=== PATIENT | male | born 1960 | race African-American/Black ===

== ENCOUNTER 2016-04-05 15:23 | Inpatient (IN) ==
[2016-04-05] MEDS ORDERED: 0.9 % Sodium Chloride 1,000 ML IV ONE (15:58)
--- NOTE | 2016-04-05 16:50 | Emergency Department Note ---
Disposition Clinical Impression: Pneumonia Disposition: Admitted As Inpatient Condition: Fair General Adult HPI - General Chief complaint: ED Fever Stated complaint: Fever, lung cancer patient Time Seen by Provider: 04/05/16 15:46 Source: patient Limitations: no limitations Nursing Notes Reviewed: Yes Vital Signs Reviewed: Yes - History of Present Illness HPI Narrative: Patient here for evaluation of cough congestion and fever. Patient is a lung cancer patient that is undergoing chemotherapy. Patient's chemotherapy was scheduled for the of to the secondary to cough and congestion that was treated with outpatient antibiotics. Patient received treatment on the and has been having increasing amount of cough and dyspnea and yellow sputum. Patient feels congestion in chest pain that is located in the left anterior chest region. Temperature was taken at outpatient facility and told that he was febrile. Currently afebrile. Patient is cachectic looking with skin that is warm to the touch. No significant focal finding on pulmonary exam. Patient is significantly tachycardic. Will investigate for possible pneumonia. Workup is negative patient will receive a CTA to evaluate for possible PE. Pain Scale: 9 - Related Data Home Medications Medication Instructions Recorded Confirmed Hydrochlorothiazide [Microzide] 25 mg PO DAILY 09/18/14 04/05/16 Tiotropium [Spiriva] 18 mcg IH DAILY 04/07/15 04/05/16 Albuterol Sulfate [Ventolin Hfa] 2 puff IH Q4H PRN 10/07/15 04/05/16 Budesonide/Formoterol 160/4.5 2 puff IH BIDR 10/07/15 04/05/16 [Symbicort 160/4.5] Montelukast [Singulair] 10 mg PO DAILY 11/15/15 04/05/16 Ipratropium/Albuterol Neb [Duoneb] 3 ml IH QID PRN 04/05/16 04/05/16 Lactose-Reduced Food [Ensure 1 bottle PO TID 04/05/16 04/05/16 Liquid] Previous Rx's Medication Instructions Recorded Aspirin 81 mg PO DAILY #90 tab.chew 12/09/14 Omeprazole [PriLOSEC] 40 mg PO DAILY #30 capsule 04/07/15 Calcium Carb, Citrate/Vit D3 1 each PO DAILY #30 tablet.er 11/19/15 [Calcium + D3 ER Tablet] Docusate Sodium [Colace] 100 mg PO BID PRN #60 02/10/16 Dexamethasone [Decadron] 4 mg PO BID #40 tab 03/16/16 Ondansetron [Zofran] 4 mg PO Q8HR PRN #90 tablet 03/16/16 Prochlorperazine Maleate 10 mg PO Q8HR PRN #90 tablet 03/16/16 [Compazine] Lidocaine/Prilocaine CREAM [Emla] 1 gm TP AD #1 tube 03/20/16 Magic Mouthwash 5 ml PO Q4H PRN #240 ml 03/20/16 OxyCODONE Immed Rel [Roxicodone 5 5 mg PO Q6HR PRN #90 tablet 03/30/16 MG] Allergies Allergy/AdvReac Type Severity Reaction Status Date / Time No Known Allergies Allergy Verified 04/05/16 15:28 All systems ED: reviewed and negative except as stated. Constitutional: Reports: fever, chills, weakness Cardiovascular: Reports: chest pain, dyspnea on exertion Respiratory: Reports: cough, dyspnea Past Medical History - Past Medical History Medical history: Reports: cancer, COPD, GERD, hypertension, other Surgical history: Reports: other Psychiatric history: Reports: no psych history - Social History Smoking Status: Current every day smoker Smokeless Tobacco Status: No Alcohol use: Reports: occasionally Drug use: Reports: marijuana Physical Exam - General Limitations: no limitations General appearance: alert, in no apparent distress - Head Head exam: atraumatic, normocephalic - Eye Eye exam: Present: normal appearance - ENT ENT exam: normal exam, normal oropharynx - Neck Neck exam: Present: normal inspection, full ROM - Chest Chest inspection: Present: normal inspection, symmetric chest wall rise. Absent : tenderness - Respiratory Respiratory exam: Present: normal lung sounds bilaterally. Absent: respiratory distress, wheezes - Cardiovascular Cardiovascular exam: Present: regular rate, normal rhythm - Abdominal Exam Abdominal exam: Present: soft, Non-Tender - Extremities Exam Extremities exam: Present: normal inspection. Absent: tenderness - Back Exam Back exam: Present: normal inspection. Absent: tenderness - Neurological Exam Neurological exam: Present: alert, oriented X3, CN II-XII intact - Psychiatric Psychiatric exam: Present: normal affect, normal mood - Skin Skin exam: Present: warm, dry Course - Reevaluation(s) Reevaluation #1: CTA negative for PE. Multifocal pneumonia. Antibiotics given. - Consultations Consultation #1: Discussed with hospitalist. Patient accepted. Request CTA to rule out PE. Vital Signs Temperature 97.8 F 04/05/16 15:25 Pulse Rate 129 04/05/16 15:25 Respiratory Rate 20 04/05/16 15:25 Blood Pressure 127/81 04/05/16 15:25 O2 Sat by Pulse Oximetry 93 L 04/05/16 15:25 Temperature 97.8 F 04/05/16 15:25 Pulse Rate 102 04/05/16 20:04 Respiratory Rate 16 04/05/16 20:59 Blood Pressure 136/89 04/05/16 20:59 O2 Sat by Pulse Oximetry 95 04/05/16 20:04 Oxygen Delivery Oxygen Delivery Room Air Medical Decision Making - Medical Records Medical records reviewed: Yes I reviewed the patient's medical records. - Lab Data Lab results reviewed: Yes I reviewed the patient's lab results. Result diagrams: 04/05/16 17:09 04/05/16 17:09 Lab Results 04/05/16 04/05/16 04/05/16 Range/Units 17:09 17:09 17:09 WBC 11.2 H (4.3-11.1) K/mcL RBC 4.07 L (4.19-5.50) M/mcL Hgb 10.4 L (12.9-16.9) g/dL Hct 32.9 L (37.5-50.1) % MCV 80.8 L (83.0-100.0) fL MCH 25.6 L (28.0-33.3) pg MCHC 31.6 (31.6-35.5) g/dL RDW 14.6 H (11.5-14.5) % Plt Count 722 H (140-400) K/mcL MPV 9.9 (9.4-12.4) fL Immature Gran % 0.7 (0-4) % Seg Neutrophils % 88.3 % Lymphocytes % 4.0 % Monocytes % 6.7 % Eosinophils % 0.0 % Basophils % 0.3 % Neutrophils # 9.9 H (1.6-8.9) K/mcL Lymphocytes # 0.5 L (0.6-4.6) K/mcL Monocytes # 0.8 (0.0-1.3) K/mcL Eosinophils # 0.0 (0.0-0.6) K/mcL Basophils # 0.0 (0.0-0.2) K/mcL PT 13.7 H (9.4-12.1) Seconds INR 1.3 Sodium 131 L (136-145) mEq/L Potassium 3.7 (3.5-4.5) mEq/L Chloride 94 L (98-109) mEq/L Carbon Dioxide 26 (19-29) mEq/L BUN 32 H (8-26) mg/dL Creatinine 0.84 (0.72-1.25) mg/dL Est GFR ( Amer) > 60 (> 60) Est GFR (Non-Af Amer) > 60 (> 60) BUN/Creatinine Ratio 38 H (6-26) Glucose 111 H (70-99) mg/dL Calculated Osmolality 280 (280-300) Lactic Acid (0.5-2.2) mmol/L Calcium 9.0 (8.6-10.8) mg/dL Phosphorus 2.8 (2.3-4.7) mg/dL Magnesium 1.7 (1.6-2.6) mg/dL Total Bilirubin 1.1 (0.2-1.2) mg/dL Direct Bilirubin 0.5 (0.0-0.5) mg/dL Indirect Bilirubin 0.6 (0.0-1.2) mg/dL AST 37 H (5-34) Units/L ALT 35 (0-55) Units/L Alkaline Phosphatase 114 (38-126) Units/L Troponin I (0-0.03) ng/mL Serum Total Protein 7.1 (6.0-8.3) g/dL Albumin 2.7 L (3.5-5.0) g/dL Globulin 4.4 H (2.4-3.5) g/dL Albumin/Globulin Ratio 0.6 L (1.1-2.2) Urine Color (Yellow) Urine Clarity (Clear) Urine pH (5.0-8.0) pH Units Ur Specific [place] (1.010-1.025) Urine Protein (Neg-Trace) mg/dL Urine Glucose (UA) (Normal) mg/dL Urine Ketones (Negative) mg/dL Urine Blood (Negative) Urine Nitrite (Negative) Urine Bilirubin (Negative) Urine Urobilinogen (Normal) mg/dL Ur Leukocyte Esterase (Negative) Urine Microscopic RBC Urine Microscopic WBC (0-3) per hpf Ur Squamous Epith Cells (None-Few) per lpf Urine Bacteria (None-Few) per hpf Hyaline Casts (None-Few) per lpf Ur Culture Indicated? (NO) 04/05/16 04/05/16 04/05/16 Range/Units 17:09 17:09 18:49 WBC (4.3-11.1) K/mcL RBC (4.19-5.50) M/mcL Hgb (12.9-16.9) g/dL Hct (37.5-50.1) % MCV (83.0-100.0) fL MCH (28.0-33.3) pg MCHC (31.6-35.5) g/dL RDW (11.5-14.5) % Plt Count (140-400) K/mcL MPV (9.4-12.4) fL Immature Gran % (0-4) % Seg Neutrophils % % Lymphocytes % % Monocytes % % Eosinophils % % Basophils % % Neutrophils # (1.6-8.9) K/mcL Lymphocytes # (0.6-4.6) K/mcL Monocytes # (0.0-1.3) K/mcL Eosinophils # (0.0-0.6) K/mcL Basophils # (0.0-0.2) K/mcL PT (9.4-12.1) Seconds INR Sodium (136-145) mEq/L Potassium (3.5-4.5) mEq/L Chloride (98-109) mEq/L Carbon Dioxide (19-29) mEq/L BUN (8-26) mg/dL Creatinine (0.72-1.25) mg/dL Est GFR ( Amer) (> 60) Est GFR (Non-Af Amer) (> 60) BUN/Creatinine Ratio (6-26) Glucose (70-99) mg/dL Calculated Osmolality (280-300) Lactic Acid 0.8 (0.5-2.2) mmol/L Calcium (8.6-10.8) mg/dL Phosphorus (2.3-4.7) mg/dL Magnesium (1.6-2.6) mg/dL Total Bilirubin (0.2-1.2) mg/dL Direct Bilirubin (0.0-0.5) mg/dL Indirect Bilirubin (0.0-1.2) mg/dL AST (5-34) Units/L ALT (0-55) Units/L Alkaline Phosphatase (38-126) Units/L Troponin I 0.00 (0-0.03) ng/mL Serum Total Protein (6.0-8.3) g/dL Albumin (3.5-5.0) g/dL Globulin (2.4-3.5) g/dL Albumin/Globulin Ratio (1.1-2.2) Urine Color Dark Yellow (Yellow) Urine Clarity Cloudy A (Clear) Urine pH 6.5 (5.0-8.0) pH Units Ur Specific [place] 1.026 H (1.010-1.025) Urine Protein 30 H (Neg-Trace) mg/dL Urine Glucose (UA) Normal (Normal) mg/dL Urine Ketones Negative (Negative) mg/dL Urine Blood Negative (Negative) Urine Nitrite Negative (Negative) Urine Bilirubin Small H (Negative) Urine Urobilinogen Normal (Normal) mg/dL Ur Leukocyte Esterase Negative (Negative) Urine Microscopic RBC Test Not Performed Urine Microscopic WBC 3-5 H (0-3) per hpf Ur Squamous Epith Cells Many H (None-Few) per lpf Urine Bacteria None Seen (None-Few) per hpf Hyaline Casts None Seen (None-Few) per lpf Ur Culture Indicated? NO (NO) - Radiology Data Radiology results reviewed: Yes I reviewed the patient's radiology results. - EKG Data EKG #1 EKG attestation: Yes I reviewed and interpreted this EKG. EKG results narrative: EKG shows sinus tachycardia at a rate of 111. SC interval 132. QRS 74. QTC 361. No significant ST elevation or depression. No specific T-wave changes when compared to previous EKG of 02/26/16 Attestation Statement - Attestation Attestation: For this encounter, I have reviewed the resident, OLAP DEVELOPER, or PA documentation, treatment plan, and medical decision making; and I have had face to face time with this patient. 56-year-old male presents with concerns of increased dyspnea, cough, fever. Patient is currently being treated for lung cancer with chemotherapy. His most recent dose 4 days ago was delayed due to possible pneumonia. Patient took a Z- Reese, felt improved and then received his chemotherapy. Since the dosing of chemotherapy he has become progressively more weak and fatigued. Patient states he had a fever at home. He called his oncologist who recommended he be evaluated in the emergency department for possible pneumonia. Patient has a likely pneumonia with chest x-ray. Patient will be admitted to the hospitalist. He was started on vancomycin and Zosyn and azithromycin in the emergency department. Hospitalist requested CTA of the chest before going upstairs which shows infiltrate but not presence of PE.
[2016-04-05 17:17] LABS: Basophils % 0.3 %; Hematocrit 32.9 % (37.5-50.1); Hemoglobin 10.4 g/dL (12.9-16.9); Immature Granulocytes % 0.7 % (0-4); Lymphocytes # 0.5 K/mcL (0.6-4.6); Mean Corpuscular HGB Conc 31.6 g/dL (31.6-35.5); Mean Corpuscular Hemoglobin 25.6 pg (28.0-33.3); Mean Corpuscular Volume 80.8 fL (83.0-100.0); Mean Platelet Volume 9.9 fL (9.4-12.4); Monocytes # 0.8 K/mcL (0.0-1.3); Monocytes % 6.7 %; Neutrophils # 9.9 K/mcL (1.6-8.9); Platelet Count 722 K/mcL (140-400); Red Blood Count 4.07 M/mcL (4.19-5.50); Red Cell Distribution Width 14.6 % (11.5-14.5); Segmented Neutrophils % 88.3 %
[2016-04-05 17:24] LABS: INR 1.3; Prothrombin Time 13.7 Seconds (9.4-12.1)
[2016-04-05 17:30] LABS: Alanine Aminotransferase 35 Units/L (0-55); Albumin 2.7 g/dL (3.5-5.0); Albumin/Globulin Ratio 0.6 (1.1-2.2); Alkaline Phosphatase 114 Units/L (38-126); Aspartate Amino Transferase 37 Units/L (5-34); BUN/Creatinine Ratio 38 (6-26); Bilirubin,Direct 0.5 mg/dL (0.0-0.5); Bilirubin,Indirect 0.6 mg/dL (0.0-1.2); Bilirubin,Total 1.1 mg/dL (0.2-1.2); Blood Urea Nitrogen 32 mg/dL (8-26); Carbon Dioxide 26 mEq/L (19-29); Chloride 94 mEq/L (98-109); Globulin 4.4 g/dL (2.4-3.5); Glucose 111 mg/dL (70-99); Magnesium 1.7 mg/dL (1.6-2.6); Osmolality,Calculated 280 (280-300); Phosphorous 2.8 mg/dL (2.3-4.7); Potassium 3.7 mEq/L (3.5-4.5); Sodium 131 mEq/L (136-145); Total Protein 7.1 g/dL (6.0-8.3); eGFR For African Americans > 60 (> 60); eGFR For Non-African Americans > 60 (> 60)
[2016-04-05] MEDS ORDERED: Vancomycin 1,000 MG in D5% in Water 250 ML IVPB STA (17:53)
[2016-04-05] MEDS ORDERED: Piperacillin/Tazobactam 3.375 GM in D5% in Water (Mini-Bag+) 100 ML IVPB ONE (17:55)
[2016-04-05] MEDS ORDERED: Azithromycin 500 MG in D5% in Water 250 ML IVPB STA (18:00)
[2016-04-05 18:56] LABS: Bilirubin,Urine Small (Negative); Blood,Urine Negative (Negative); Clarity,Urine Cloudy (Clear); Color,Urine Dark Yellow (Yellow); Glucose,Urine (UA) Normal (Normal); Ketones,Urine Negative (Negative); Leukocyte Esterase,Urine Negative (Negative); Nitrite,Urine Negative (Negative); PH,Urine 6.5 pH Units (5.0-8.0); Protein,Urine 30 mg/dL (Neg-Trace); Specific Gravity,Urine 1.026 (1.010-1.025); Urobilinogen,Urine Normal (Normal)
[2016-04-05 19:02] LABS: Bacteria,Urine None Seen per hpf (None-Few); Hyaline Casts,Urine None Seen per lpf (None-Few); Squamous Epithelial Cell,Urine Many per lpf (None-Few)
[2016-04-05] MEDS ORDERED: *HR* OxyCODONE/APAP 5/325 TABLET PO ONE (20:00)
--- NOTE | 2016-04-05 20:23 | Internal Med History&Physical ---
<JonasGarret - Last Filed: 04/05/16 21:29> Date of Encounter: 04/05/16 Time of Encounter: 20:19 Assessment and Plan (1) Acute and chronic respiratory failure Current visit: Yes Status: Acute Patient does have 2L oxygen as needed at home and has required constant supplemental oxygen and presented mildly hypoxemia upon arrival Will continue on supplemental oxygen and support with scheduled breathing treatments and as needed nebulizers Significant wheezing heard upon examination, so will start on low dose solumedrol If he does not respond to current regimen, may consider pulmonology consult for further management with possible bronchoscopy to evaluate for post-obstructive process Preliminary CTA report negative for PE Qualifiers: Qualified Code(s): J96.20 - Acute and chronic respiratory failure, unspecified whether with hypoxia or hypercapnia (2) HCAP (healthcare-associated pneumonia) Current visit: Yes Status: Acute Patient has left lower consolidation seen 2 weeks prior and presumably failed outpatient therapy with one dose of IV levaquin and Z-reese He is immunocompromised on chemotherapy and thus meets criteria for health care associated illness Will start on broad spectrum antibiotics with Vanc, Zosyn, and Levaquin Blood cultures obtained, will also get sputum culture and wait for sensitivities prior to de-escalation Although he did present with tachycardia and borderline tachypnea I do not feel patient appears septic; he did receive fluid bolus in the ED (3) Acute exacerbation of chronic obstructive airways disease Current visit: Yes Status: Acute Plan as above with supplemental oxygen, steroids, and breathing treatments (4) Metastatic lung carcinoma Current visit: No Status: Chronic He has received his first round of chemotherapy last week and is being managed by Dr. Mathur as outpatient Will consult Oncology, appreciate recommendations Qualifiers: Laterality: right Qualified Code(s): C78.01 - Secondary malignant neoplasm of right lung (5) Hypertension Current visit: Yes Status: Chronic Blood pressure within normal limits upon admission Will continue home dose of HCTZ Qualifiers: Qualified Code(s): I10 - Essential (primary) hypertension (6) Essential thrombocytosis Current visit: No Status: Chronic He has known JAK2 kinase mutation and was previously on Hydrea prior to starting chemotherapy Patient denies any history of blood clots, will defer to oncology for any further management (7) DVT prophylaxis Current visit: Yes Status: Acute Lovenox SQ 40 daily Internal Medicine - H&P: HPI Chief complaint: Shortness of breath Admitted From: Home Plans for Post Hospital Care: Home History of present illness: Mr. Sheridan is a 56 year old male who presents to the emergency department with shortness of breath associated with cough and fever since Sunday. He states that he felt short of breath even at rest which started over the weekend and associated with a productive cough of yellow sputum. He also has been having a fever, highest recorded temperature was 100.8. He also complains of chest discomfort in the left side of his chest and also has pain with cough. Patient did see the oncologist 2 weeks ago who found a left lower lobe pneumonia and was give a shot of Levaquin and then a Z-Reese. He was recently confirmed to have lung cancer last month and started chemotherapy last week, which was delayed while he was being treated for pneumonia. He felt fine the first couple days after the infusion, but expresses nausea and vomiting afterwards. He denies any blood in his vomit or sputum. He had a PET scan done 2 months prior which revealed uptake in the lung mass along with adrenal and left iliac region. 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 He also has a history of essential thrombocythemia and was previously on hydroxyurea but was stopped when he started chemotherapy recently. Patient currently denies any chest pain, fever, nausea does admit to poor appetite. Past Med Surg Social Fam HX - Past Medical History Medical history: cancer, COPD, GERD, hypertension, other Psychiatric history: no psych history - Past Surgical History Surgical History: other - Social History Smoking Status: Current every day smoker Smokeless Tobacco Status: No Alcohol use: occasionally Drug use: marijuana Internal Medicine - H&P: Meds Hydrochlorothiazide [Microzide] 25 mg PO DAILY 09/18/14 [History] Aspirin 81 mg PO DAILY #90 tab.chew 12/09/14 [Rx] Omeprazole [PriLOSEC] 40 mg PO DAILY #30 capsule 04/07/15 [Rx] Tiotropium [Spiriva] 18 mcg IH DAILY 04/07/15 [History] Albuterol Sulfate [Ventolin Hfa] 2 puff IH Q4H PRN 10/07/15 [History] Budesonide/Formoterol 160/4.5 [Symbicort 160/4.5] 2 puff IH BIDR 10/07/15 [ History] Montelukast [Singulair] 10 mg PO DAILY 11/15/15 [History] Calcium Carb, Citrate/Vit D3 [Calcium + D3 ER Tablet] 1 each PO DAILY #30 tablet.er 11/19/15 [Rx] Docusate Sodium [Colace] 100 mg PO BID PRN #60 02/10/16 [Rx] Dexamethasone [Decadron] 4 mg PO BID #40 tab 03/16/16 [Rx] Ondansetron [Zofran] 4 mg PO Q8HR PRN #90 tablet 03/16/16 [Rx] Prochlorperazine Maleate [Compazine] 10 mg PO Q8HR PRN #90 tablet 03/16/16 [Rx] Lidocaine/Prilocaine CREAM [Emla] 1 gm TP AD #1 tube 03/20/16 [Rx] Magic Mouthwash 5 ml PO Q4H PRN #240 ml 03/20/16 [Rx] OxyCODONE Immed Rel [Roxicodone 5 MG] 5 mg PO Q6HR PRN #90 tablet 03/30/16 [Rx] Ipratropium/Albuterol Neb [Duoneb] 3 ml IH QID PRN 04/05/16 [History] Lactose-Reduced Food [Ensure Liquid] 1 bottle PO TID 04/05/16 [History] Allergies No Known Allergies Allergy (Verified 04/05/16 15:28) All Systems PM: A 10-system review of systems was performed and is negative for pertinent findings except as documented above in the HPI. - Constitutional Constitutional: anorexia, chills, fever(s), weakness, no night sweats - EENT Eyes: no change in vision, no discharge, no pain, no photophobia Ears: no ear discharge, no ear pain, no tinnitus Nose, mouth and throat: no dysphagia, no nasal discharge, no neck pain, no sore throat - Cardiovascular Cardiovascular ROS IM: chest pain, dyspnea, dyspnea on exertion, no diaphoresis , no lightheadedness, no palpitations, no syncope - Respiratory Respiratory: cough, dyspnea, wheezing, change in phlegm color, pain with cough, no excessive phlegm production - Gastrointestinal Gastrointestinal: nausea, vomiting, no abdominal pain, no diarrhea, no hematemesis, no hematochezia, no melena - Musculoskeletal Musculoskeletal ROS IM: no numbness, no tingling - Integumentary Integumentary IM: no rash, no unusual bruising - Neurological Neurological ROS: no confusion, no convulsions, no focal weakness, no frequent falls, no headache(s), no numbness, no tingling, no tremor(s) - Hematologic/Lymphatic Hematologic/Lymphatic: no easy bruising - Constitutional Vitals: Temp Pulse Resp BP Pulse Ox 97.8 F 102 16 138/98 95 04/05/16 15:25 04/05/16 20:04 04/05/16 20:04 04/05/16 20:04 04/05/16 20:04 General appearance: Present: cachectic, cooperative, pleasant, no acute distress , answers questions appropriately - Head Head exam: Present: atraumatic, normocephalic - Eye Eye exam: Present: PERRL, conjuntiva pink, sclera anicteric - Neck Neck exam general surgery: Present: supple, trachea midline. Absent: lymphadenopathy - Respiratory Respiratory exam: Present: CTAB. Absent: accessory muscle use, rales, rhonchi, wheezes - Cardiovascular Cardiovascular exam: Present: RRR, +S1, +S2. Absent: diastolic murmur, gallop, rubs, systolic murmur - GI/Abdominal GI/Abdominal exam: Present: normal bowel sounds, soft, no peritoneal signs. Absent: distended, tenderness - Extremities Exam Extremities exam: Present: warm, radial pulses palpable and symetrical. Absent : calf tenderness, cyanotic, pedal edema - Neurological Exam Neurological exam: Present: alert, no focal deficits. Absent: facial droop, speech deficit - Skin Skin exam: Present: dry, intact Internal Med - H&P Results - Labs CBC & Chem 7: 04/05/16 17:09 04/05/16 17:09 <Bonilla Montalvo - Last Filed: 04/06/16 05:06> Date of Encounter: 04/05/16 Internal Medicine - H&P: HPI History of present illness: Mr. Sheridan is a 56 year old male with two-day [facility] via the emergency department when he presented with chief complaint of fever and difficulty breathing in the setting of metastatic lung cancer. The patient was visited and interviewed and examined. I examined this patient and my medical decision-making was reviewed with the Resident Physician. For this encounter, I have reviewed the documentation, treatment plan, and medical decision making. I agree with the documented findings, disposition and treatment plan as described except to the extent set forth below. Cumulative laboratory and radiographic database was reviewed and considered and discussed. Given the patient's presenting concerns, past medical history, clinical findings and symptoms, he is admitted at this time medical for further evaluation and disposition. All Systems PM: A 10-system review of systems was performed and is negative for pertinent findings except as documented above in the HPI. - Constitutional Vitals: Temp Pulse Resp BP Pulse Ox 98.3 F 93 17 121/80 96 04/06/16 04:00 04/06/16 04:00 04/06/16 04:00 04/06/16 04:00 04/06/16 04:00 Internal Med - H&P Results - Labs CBC & Chem 7: 04/05/16 17:09 04/05/16 17:09 - Impressions Vital Signs Temp Pulse Resp BP Pulse Ox 04/06/16 04:00 98.3 F 93 17 121/80 96 04/06/16 00:00 98.7 F 96 16 115/74 97 04/05/16 22:57 18 96 04/05/16 21:16 97.7 F 99 17 110/87 100 04/05/16 20:59 16 136/89 04/05/16 20:04 102 16 138/98 95 04/05/16 18:40 100 16 113/39 95 04/05/16 17:04 103 18 125/91 96 04/05/16 15:49 95 04/05/16 15:25 97.8 F 129 20 127/81 93 L Intake and Output 04/05/16 04/05/16 04/06/16 15:59 23:59 07:59 Intake Total 1450 / 1450 790 / 790 Output Total 700 / 700 Balance 1450 / 1450 90 / 90 Intake: IV Fluids 1100 / 1100 0.9 % Sodium Chloride 1, 1000 / 1000 000 ML @ 9999 mls/hr IV BOLUS ONE Rx#:[id number] Zosyn 3.375 GM In 100 / 100 Dextrose 5% (Minibag+) 100 ML 100 ML @ 25 mls/hr IVPB ONCE ONE Rx#: [id number] Oral 350 / 350 790 / 790 Output: Urine 700 / 700 Other: Weight 54.431 kg 51.88 kg Short CBC 04/05/16 Range/Units 17:09 WBC 11.2 H (4.3-11.1) K/mcL Hgb 10.4 L (12.9-16.9) g/dL Hct 32.9 L (37.5-50.1) % Plt Count 722 H (140-400) K/mcL Neutrophils # 9.9 H (1.6-8.9) K/mcL BMP 04/05/16 Range/Units 17:09 Sodium 131 L (136-145) mEq/L Potassium 3.7 (3.5-4.5) mEq/L Chloride 94 L (98-109) mEq/L Carbon Dioxide 26 (19-29) mEq/L BUN 32 H (8-26) mg/dL Creatinine 0.84 (0.72-1.25) mg/dL Glucose 111 H (70-99) mg/dL Calcium 9.0 (8.6-10.8) mg/dL Cardiac Enzymes 04/05/16 Range/Units 17:09 Troponin I 0.00 (0-0.03) ng/mL Liver Function 04/05/16 Range/Units 17:09 Total Bilirubin 1.1 (0.2-1.2) mg/dL Direct Bilirubin 0.5 (0.0-0.5) mg/dL AST 37 H (5-34) Units/L ALT 35 (0-55) Units/L Alkaline Phosphatase 114 (38-126) Units/L Albumin 2.7 L (3.5-5.0) g/dL Urine 04/05/16 Range/Units 18:49 Urine Color Dark Yellow (Yellow) Urine Clarity Cloudy A (Clear) Urine pH 6.5 (5.0-8.0) pH Units Ur Specific [place] 1.026 H (1.010-1.025) Urine Protein 30 H (Neg-Trace) mg/dL Urine Glucose (UA) Normal (Normal) mg/dL Abnormal lab results WBC 11.2 K/mcL (4.3-11.1) H 04/05/16 17:09 RBC 4.07 M/mcL (4.19-5.50) L 04/05/16 17:09 Hgb 10.4 g/dL (12.9-16.9) L 04/05/16 17:09 Hct 32.9 % (37.5-50.1) L 04/05/16 17:09 MCV 80.8 fL (83.0-100.0) L 04/05/16 17:09 MCH 25.6 pg (28.0-33.3) L 04/05/16 17:09 RDW 14.6 % (11.5-14.5) H 04/05/16 17:09 Plt Count 722 K/mcL (140-400) H 04/05/16 17:09 Neutrophils # 9.9 K/mcL (1.6-8.9) H 04/05/16 17:09 Lymphocytes # 0.5 K/mcL (0.6-4.6) L 04/05/16 17:09 PT 13.7 Seconds (9.4-12.1) H 04/05/16 17:09 Sodium 131 mEq/L (136-145) L 04/05/16 17:09 Chloride 94 mEq/L (98-109) L 04/05/16 17:09 BUN 32 mg/dL (8-26) H 04/05/16 17:09 BUN/Creatinine Ratio 38 (6-26) H 04/05/16 17:09 Glucose 111 mg/dL (70-99) H 04/05/16 17:09 AST 37 Units/L (5-34) H 04/05/16 17:09 Albumin 2.7 g/dL (3.5-5.0) L 04/05/16 17:09 Globulin 4.4 g/dL (2.4-3.5) H 04/05/16 17:09 Albumin/Globulin Ratio 0.6 (1.1-2.2) L 04/05/16 17:09 Urine Clarity Cloudy (Clear) A 04/05/16 18:49 Ur Specific [place] 1.026 (1.010-1.025) H 04/05/16 18:49 Urine Protein 30 mg/dL (Neg-Trace) H 04/05/16 18:49 Urine Bilirubin Small (Negative) H 04/05/16 18:49 Urine Microscopic WBC 3-5 per hpf (0-3) H 04/05/16 18:49 Ur Squamous Epith Cells Many per lpf (None-Few) H 04/05/16 18:49 Allergies Allergy/AdvReac Type Severity Reaction Status Date / Time No Known Allergies Allergy Verified 04/05/16 15:28 Laboratory Results WBC 11.2 K/mcL (4.3-11.1) H 04/05/16 17:09 RBC 4.07 M/mcL (4.19-5.50) L 04/05/16 17:09 Hgb 10.4 g/dL (12.9-16.9) L 04/05/16 17:09 Hct 32.9 % (37.5-50.1) L 04/05/16 17:09 MCV 80.8 fL (83.0-100.0) L 04/05/16 17:09 MCH 25.6 pg (28.0-33.3) L 04/05/16 17:09 MCHC 31.6 g/dL (31.6-35.5) 04/05/16 17:09 RDW 14.6 % (11.5-14.5) H 04/05/16 17:09 Plt Count 722 K/mcL (140-400) H 04/05/16 17:09 MPV 9.9 fL (9.4-12.4) 04/05/16 17:09 Immature Gran % 0.7 % (0-4) 04/05/16 17:09 Seg Neutrophils % 88.3 % 04/05/16 17:09 Lymphocytes % 4.0 % 04/05/16 17:09 Monocytes % 6.7 % 04/05/16 17:09 Eosinophils % 0.0 % 04/05/16 17:09 Basophils % 0.3 % 04/05/16 17:09 Neutrophils # 9.9 K/mcL (1.6-8.9) H 04/05/16 17:09 Lymphocytes # 0.5 K/mcL (0.6-4.6) L 04/05/16 17:09 Monocytes # 0.8 K/mcL (0.0-1.3) 04/05/16 17:09 Eosinophils # 0.0 K/mcL (0.0-0.6) 04/05/16 17:09 Basophils # 0.0 K/mcL (0.0-0.2) 04/05/16 17:09 PT 13.7 Seconds (9.4-12.1) H 04/05/16 17:09 INR 1.3 04/05/16 17:09 Sodium 131 mEq/L (136-145) L 04/05/16 17:09 Potassium 3.7 mEq/L (3.5-4.5) 04/05/16 17:09 Chloride 94 mEq/L (98-109) L 04/05/16 17:09 Carbon Dioxide 26 mEq/L (19-29) 04/05/16 17:09 BUN 32 mg/dL (8-26) H 04/05/16 17:09 Creatinine 0.84 mg/dL (0.72-1.25) 04/05/16 17:09 Est GFR ( Amer) > 60 (> 60) 04/05/16 17:09 Est GFR (Non-Af Amer) > 60 (> 60) 04/05/16 17:09 BUN/Creatinine Ratio 38 (6-26) H 04/05/16 17:09 Glucose 111 mg/dL (70-99) H 04/05/16 17:09 Calculated Osmolality 280 (280-300) 04/05/16 17:09 Lactic Acid 0.6 mmol/L (0.5-2.2) 04/05/16 19:50 Calcium 9.0 mg/dL (8.6-10.8) 04/05/16 17:09 Phosphorus 2.8 mg/dL (2.3-4.7) 04/05/16 17:09 Magnesium 1.7 mg/dL (1.6-2.6) 04/05/16 17:09 Total Bilirubin 1.1 mg/dL (0.2-1.2) 04/05/16 17:09 Direct Bilirubin 0.5 mg/dL (0.0-0.5) 04/05/16 17:09 Indirect Bilirubin 0.6 mg/dL (0.0-1.2) 04/05/16 17:09 AST 37 Units/L (5-34) H 04/05/16 17:09 ALT 35 Units/L (0-55) 04/05/16 17:09 Alkaline Phosphatase 114 Units/L (38-126) 04/05/16 17:09 Troponin I 0.00 ng/mL (0-0.03) 04/05/16 17:09 Serum Total Protein 7.1 g/dL (6.0-8.3) 04/05/16 17:09 Albumin 2.7 g/dL (3.5-5.0) L 04/05/16 17:09 Globulin 4.4 g/dL (2.4-3.5) H 04/05/16 17:09 Albumin/Globulin Ratio 0.6 (1.1-2.2) L 04/05/16 17:09 Urine Color Dark Yellow (Yellow) 04/05/16 18:49 Urine Clarity Cloudy (Clear) A 04/05/16 18:49 Urine pH 6.5 pH Units (5.0-8.0) 04/05/16 18:49 Ur Specific [place] 1.026 (1.010-1.025) H 04/05/16 18:49 Urine Protein 30 mg/dL (Neg-Trace) H 04/05/16 18:49 Urine Glucose (UA) Normal mg/dL (Normal) 04/05/16 18:49 Urine Ketones Negative mg/dL (Negative) 04/05/16 18:49 Urine Blood Negative (Negative) 04/05/16 18:49 Urine Nitrite Negative (Negative) 04/05/16 18:49 Urine Bilirubin Small (Negative) H 04/05/16 18:49 Urine Urobilinogen Normal mg/dL (Normal) 04/05/16 18:49 Ur Leukocyte Esterase Negative (Negative) 04/05/16 18:49 Urine Microscopic RBC Test Not Performed 04/05/16 18:49 Urine Microscopic WBC 3-5 per hpf (0-3) H 04/05/16 18:49 Ur Squamous Epith Cells Many per lpf (None-Few) H 04/05/16 18:49 Urine Bacteria None Seen per hpf (None-Few) 04/05/16 18:49 Hyaline Casts None Seen per lpf (None-Few) 04/05/16 18:49 Ur Culture Indicated? NO (NO) 04/05/16 18:49 Impressions Chest X-Ray 04/05/16 15:58 IMPRESSION: 1. Interval placement of a right chest port with the tip overlying the mid SVC. 2. Slight interval increase in size of left upper lobe versus pleural based nodule. This could also be related to underlying bony metastasis when compared to the prior PET-CT. 3. Stable appearance of right apical lung mass. 4. Persistent left lower lobe pneumonia. D/ / 04/05/2016 16:32:05 Esmer Dave MD / Renetta Urbina Interpreting Provider: Esmer Dave MD Chest CTA 04/05/16 18:16 IMPRESSION: Negative study for pulmonary embolism. Interval development of consolidation and mild ground-glass opacity along with reticular opacities to left lower lobe as well as irregular but somewhat linear mild consolidation to right lower lobe since prior PET-CT 02/23/2016. Findings may be on the basis of multifocal pneumonia, but other etiologies are not excluded and continued follow-up is recommended. There is also some likely mucus plugging in subsegmental bronchi to the left lower lobe towards the region of consolidation. Redemonstration of mass to the right upper lobe, similar in size from prior PET-CT but with interval development of cavitation. Redemonstration of bony metastatic disease with soft tissue mass with bony destructive change to anterior left rib, enlarged from prior PET-CT. There is also a partially imaged soft tissue mass to the left retroperitoneum felt to reflect enlargement of soft tissue component of bony metastatic lesion previously noted to the left iliac crest on prior PET-CT. Emphysema. D/ / 04/05/2016 20:03:36 Lorenzo Morley MD / stephanie Interpreting Provider: Lorenzo Morley MD - Attending Attestation My signature below is to certify that this patient is under my care and that I, or the Resident Physician working with me, has had a [id number] encounter with this patient. Care has been reviewed and discussed in detail with the patient. Questions addressed. Advanced care directive discussion briefly addressed. Patient does not clear any healthcare restrictions at this time. Outpatient medications schedules, confirmed and facilitated as appropriate. Reconciliation of home treatments including adjustments, substitutions and reintroduction into the treatment regimen will address necessary maintenance therapies for chronic pre-existing medical conditions. Hospital course dictated by clinical findings, treatment response and potential consultative interventions. The patient is at risk for further acute clinical decline and morbidity given this presenting chief complaint, frailty and associated comorbidities. Condition is serious. Prognosis is guarded. CODE STATUS is reported as full.
[2016-04-05] MEDS ORDERED: *HR* OxyCODONE Immed Rel 5 MG TABLET PO PRN (21:15)
[2016-04-05] MEDS ORDERED: Naloxone 0.4 MG/ML INJ IVP PRN (21:15)
[2016-04-05] MEDS ORDERED: Acetaminophen 325 MG TABLET PO PRN (21:15)
[2016-04-05] MEDS ORDERED: Ondansetron ODT 4 MG TAB.RAPDIS SL PRN (21:15)
[2016-04-05] MEDS ORDERED: Albuterol 2.5 MG/3 ML NEBULIZER IH PRN (21:22)
[2016-04-05] MEDS ORDERED: Budesonide/Formoterol 160/4.5 MDI IH SCH (22:00)
[2016-04-05] MEDS: Ipratropium/Albuterol Neb 3 ML IH SCH (22:57)
[2016-04-06] MEDS ORDERED: MethylPREDNISolone 40 MG/ML VIAL IVP SCH
[2016-04-06] MEDS: Piperacillin/Tazobactam 3.375 GM in D5% in Water (Mini-Bag+) 100 ML IVPB SCH ×3 (01:14→17:10)
[2016-04-06] MEDS ORDERED: *HR* HYDROmorphone (PF) 1 MG/ML SYRINGE IVP PRN (04:50)
[2016-04-06] MEDS ORDERED: *HR* Promethazine 25 MG/ML VIAL IVP PRN (04:50)
[2016-04-06] MEDS: Ipratropium/Albuterol Neb 3 ML IH SCH ×4 (04:52→21:09)
[2016-04-06] MEDS: *HR* Enoxaparin 40 MG/0.4 ML SYRINGE SQ SCH (05:11)
[2016-04-06] MEDS: 0.9 % Sodium Chloride 1,000 ML IVC SCH ×2 (05:13→18:31)
[2016-04-06 05:39] LABS: Basophils % 0.2 %; Hematocrit 31.3 % (37.5-50.1); Hemoglobin 9.7 g/dL (12.9-16.9); Immature Granulocytes % 0.6 % (0-4); Lymphocytes # 0.3 K/mcL (0.6-4.6); Lymphocytes % 2.7 %; Mean Corpuscular Hemoglobin 25.3 pg (28.0-33.3); Mean Corpuscular Volume 81.7 fL (83.0-100.0); Monocytes # 0.1 K/mcL (0.0-1.3); Monocytes % 1.4 %; Neutrophils # 9.1 K/mcL (1.6-8.9); Platelet Count 666 K/mcL (140-400); Red Blood Count 3.83 M/mcL (4.19-5.50); Red Cell Distribution Width 14.6 % (11.5-14.5); Segmented Neutrophils % 95.1 %
[2016-04-06] MEDS ORDERED: *HR* HYDROmorphone (PF) 1 MG/ML SYRINGE IVP ONE (05:40)
[2016-04-06 05:51] LABS: BUN/Creatinine Ratio 28 (6-26); Blood Urea Nitrogen 23 mg/dL (8-26); Calcium 8.7 mg/dL (8.6-10.8); Carbon Dioxide 27 mEq/L (19-29); Chloride 96 mEq/L (98-109); Glucose 168 mg/dL (70-99); Osmolality,Calculated 284 (280-300); Potassium 3.6 mEq/L (3.5-4.5); Sodium 133 mEq/L (136-145); eGFR For African Americans > 60 (> 60); eGFR For Non-African Americans > 60 (> 60)
[2016-04-06] MEDS ORDERED: Albuterol 2.5 MG/3 ML NEBULIZER IH PRN (06:03)
[2016-04-06] MEDS ORDERED: methylPREDNISolone 125 MG/2 ML VIAL IVP ONE (06:05)
[2016-04-06 06:32] LABS: ABG Base Excess 4.6 mEq/L (-2.0 to 3.0); ABG HCO3 29.8 mEQ/L (21-27); ABG Oxygen Saturation 95 % (95-98); ABG PCO2 46 mmHg (35-45); ABG PH 7.42 pH Units (7.32-7.45); ABG PO2 72 mmHg (85-104); ABG TCO2 31.2 mEq/L (20-26)
[2016-04-06 06:33] LABS: Blood Gas FiO2 28 %
--- NOTE | 2016-04-06 06:55 | Oncology Inp Consult Note ---
Date of Encounter: 04/06/16 Time of Encounter: 06:53 - Data of Consult Patient: known to practice within the last 3 years Consult date: 04/06/16 Requesting Physician: Kishan Pratt Primary Care Provider: Courtney Valenzuela, DO - Consult Narrative Reason for consult: Lung cancer, MPN. History of present illness: Mr. Sheridan is a 56 year old male patient of the cancer center who has established oncologic care for lung cancer and MPN. He is followed by my partner Dr. Schaeffer and was last seen in the office . I have summarized patient's heme/onc background below based on Dr. Schaeffer 's most recent office report: cytara Mr. Sheridan 56 year old male known to clinic with history of GI bleeding. He has a history of an ulcer about 20 years ago. During his workup/evaluation, he was noted to have an elevated platelet count and was referred for further workup. ZORAN 2 mutation sent was positive. This is consistent with myeloproliferative neoplasm. He is on oral iron and Hydrea He had a recent endoscopy, imaging that revealed a pancreatic cyst. He continues to smoke A CT scan of the abdomen and pelvis from 02/06/2016 due to left sided back pain showed a 1.9 x 0.9 cm destructive lytic mass. The cystic pancreatic tail lesion was stable since May 2014. A CT scan follow-up done in 01/14/2016 showed persistent opacity right upper lobe 4.8 x 3.4 cm mass with central necrosis and cavitation within for neoplasm. Patient had a prior CT imaging in November 2015 which showed mass IN size. He underwent a bronchoscopy that showed inflammation on pathology. Other than left-sided low back pain patient denies any weight loss, he is a smoker and he is mildly short short of breath on exertion, review of systems otherwise negative. He is on hydrea, ASA He had PET imaging that showed uptake in the lung lesion, adrenal and iliac bony lesion 02/21 He was referred for bronch but declined procedure as he though his cancer would spread Had Ct guided bx iliac lesion--poorly diff carcinoma wk TTF positive 03/24 PDL1 staining was less than 1% ROS: 03/30/16 Congestion improving Off hydrea Pain better Wt loss 12 pt ROS otherwsie neg PAST MEDICAL HISTORY: COPD, Hypertension, Peripheral Vascular Disease, Bleeding ulcers Right toe non- healing ulcer, myeloproliferative neoplasm Surgical History Notes: Right great toe amputated 09/2010 Popliteal angioplasty of right lower extremity FAMILY HISTORY: Denies significant family history SOCIAL HISTORY Tobacco use: Current smoker Alcohol use: Denies Drug use: Denies Marital status: Single 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 PDL 1 staining was less than 1%. He is here for C1 first line carbotaxol every 3 weekly 6 starting 03/30/16. 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 Essential thrombocythemia and polycythemia- JAK2 positive on hydrea. Hold hydrea patient take as needed 5 mg oxycodone. Pain under control Pancreatic lesion-stable cyst. Stable in imaging since 05/20 He will work on cutting down smoking Advanced care directives to be addressed at subsequent visit Patient is currently hospitalized for acute on chronic respiratory failure actually related to multifactorial etiologies including underlying COPD and healthcare associated pneumonia after presenting with progressive shortness of breath. He received his last dose of chemotherapy on 03/30/16 and evidently tolerated treatment well with no unexpected side effects. He has completed 2 courses of antibiotics in the days to weeks leading up to his most recent treatment due to suspected lung infection and reports that he has been having progressive shortness of breath for about 3-4 days prior to his hospitalization. Chest CT angiogram on admission was negative for pulmonary embolism but showed bilateral patchy lung opacities consistent with multifocal pneumonia. He has been started on broad-spectrum antibiotics while awaiting for results of blood cultures. Oncology is consulted re: patient's underlying lung cancer and recent chemotherapy. There is concern about contribution to his current hospitalization. Patient seen and examined at bedside. Chart review for details of ongoing care by hospital team which is much appreciated. He reports feeling considerably better versus initial admission. Respiratory symptoms have significantly improved. His comfortable appearing and was any obvious distress. His been afebrile since admission in the past been making steady, incremental improvement under ongoing excellent care by hospital team. Rest of past medical, surgical, family, social history detailed below and verified with patient today. Review of systems: 12 point review of systems performed with patient and positive findings noted in history of present illness. All other systems are negative: Physical exam: Vital Signs Temp 98.0 F 04/06/16 11:41 Pulse 106 04/06/16 11:43 Resp 20 04/06/16 11:43 BP 120/83 04/06/16 11:43 Pulse Ox 97 04/06/16 11:43 GENERAL: Alert and oriented, chronically ill appearing. Mental Status: Affect appropriate for circumstances HEENT: Sclerae anicteric. No mucositis or thrush. No other oral or pharyngeal lesions or erythema. Skin: No rashes or petechiae. No evidence of skin malignancy Lymph nodes: No cervical, supraclavicular, rectal tumor and, or inguinal adenopathy. Lungs: Clear to auscultation bilaterally. Clear to percussion bilaterally. Cardiovascular: Regular rate and rhythm. No gallops, murmurs, or rubs. Abdomen: Soft, nontender; No organomegaly or masses palpable. Extremities: No edema. No calf swelling or tenderness. No joint deformity. Neurologic: Alert, normal gait; no focal weakness or sensory abnormalities. Results: Laboratory Last Values WBC 9.5 K/mcL (4.3-11.1) 04/06/16 05:30 RBC 3.83 M/mcL (4.19-5.50) L 04/06/16 05:30 Hgb 9.7 g/dL (12.9-16.9) L 04/06/16 05:30 Hct 31.3 % (37.5-50.1) L 04/06/16 05:30 MCV 81.7 fL (83.0-100.0) L 04/06/16 05:30 MCH 25.3 pg (28.0-33.3) L 04/06/16 05:30 MCHC 31.0 g/dL (31.6-35.5) L 04/06/16 05:30 RDW 14.6 % (11.5-14.5) H 04/06/16 05:30 Plt Count 666 K/mcL (140-400) H 04/06/16 05:30 MPV 10.0 fL (9.4-12.4) 04/06/16 05:30 Immature Gran % 0.6 % (0-4) 04/06/16 05:30 Seg Neutrophils % 95.1 % 04/06/16 05:30 Lymphocytes % 2.7 % 04/06/16 05:30 Monocytes % 1.4 % 04/06/16 05:30 Eosinophils % 0.0 % 04/06/16 05:30 Basophils % 0.2 % 04/06/16 05:30 Neutrophils # 9.1 K/mcL (1.6-8.9) H 04/06/16 05:30 Lymphocytes # 0.3 K/mcL (0.6-4.6) L 04/06/16 05:30 Monocytes # 0.1 K/mcL (0.0-1.3) 04/06/16 05:30 Eosinophils # 0.0 K/mcL (0.0-0.6) 04/06/16 05:30 Basophils # 0.0 K/mcL (0.0-0.2) 04/06/16 05:30 PT 13.7 Seconds (9.4-12.1) H 04/05/16 17:09 INR 1.3 04/05/16 17:09 ABG pH 7.42 pH Units (7.32-7.45) 04/06/16 06:22 ABG pCO2 46 mmHg (35-45) H 04/06/16 06:22 ABG pO2 72 mmHg (85-104) L 04/06/16 06:22 ABG HCO3 29.8 mEQ/L (21-27) H 04/06/16 06:22 ABG Total CO2 31.2 mEq/L (20-26) H 04/06/16 06:22 ABG O2 Saturation 95 % (95-98) 04/06/16 06:22 ABG Base Excess 4.6 mEq/L (-2.0 to 3.0) H 04/06/16 06:22 Blood Gas Modality MD 04/06/16 06:22 Inspired O2 28 % 04/06/16 06:22 Sodium 133 mEq/L (136-145) L 04/06/16 05:30 Potassium 3.6 mEq/L (3.5-4.5) 04/06/16 05:30 Chloride 96 mEq/L (98-109) L 04/06/16 05:30 Carbon Dioxide 27 mEq/L (19-29) 04/06/16 05:30 BUN 23 mg/dL (8-26) 04/06/16 05:30 Creatinine 0.82 mg/dL (0.72-1.25) 04/06/16 05:30 Est GFR ( Amer) > 60 (> 60) 04/06/16 05:30 Est GFR (Non-Af Amer) > 60 (> 60) 04/06/16 05:30 BUN/Creatinine Ratio 28 (6-26) H 04/06/16 05:30 Glucose 168 mg/dL (70-99) H 04/06/16 05:30 Calculated Osmolality 284 (280-300) 04/06/16 05:30 Lactic Acid 1.0 mmol/L (0.5-2.2) 04/06/16 06:17 Calcium 8.7 mg/dL (8.6-10.8) 04/06/16 05:30 Phosphorus 2.8 mg/dL (2.3-4.7) 04/05/16 17:09 Magnesium 1.7 mg/dL (1.6-2.6) 04/05/16 17:09 Total Bilirubin 1.1 mg/dL (0.2-1.2) 04/05/16 17:09 Direct Bilirubin 0.5 mg/dL (0.0-0.5) 04/05/16 17:09 Indirect Bilirubin 0.6 mg/dL (0.0-1.2) 04/05/16 17:09 AST 37 Units/L (5-34) H 04/05/16 17:09 ALT 35 Units/L (0-55) 04/05/16 17:09 Alkaline Phosphatase 114 Units/L (38-126) 04/05/16 17:09 Troponin I 0.00 ng/mL (0-0.03) 04/05/16 17:09 Serum Total Protein 7.1 g/dL (6.0-8.3) 04/05/16 17:09 Albumin 2.7 g/dL (3.5-5.0) L 04/05/16 17:09 Globulin 4.4 g/dL (2.4-3.5) H 04/05/16 17:09 Albumin/Globulin Ratio 0.6 (1.1-2.2) L 04/05/16 17:09 Urine Color Dark Yellow (Yellow) 04/05/16 18:49 Urine Clarity Cloudy (Clear) A 04/05/16 18:49 Urine pH 6.5 pH Units (5.0-8.0) 04/05/16 18:49 Ur Specific Temple 1.026 (1.010-1.025) H 04/05/16 18:49 Urine Protein 30 mg/dL (Neg-Trace) H 04/05/16 18:49 Urine Glucose (UA) Normal mg/dL (Normal) 04/05/16 18:49 Urine Ketones Negative mg/dL (Negative) 04/05/16 18:49 Urine Blood Negative (Negative) 04/05/16 18:49 Urine Nitrite Negative (Negative) 04/05/16 18:49 Urine Bilirubin Small (Negative) H 04/05/16 18:49 Urine Urobilinogen Normal mg/dL (Normal) 04/05/16 18:49 Ur Leukocyte Esterase Negative (Negative) 04/05/16 18:49 Urine Microscopic RBC Test Not Performed 04/05/16 18:49 Urine Microscopic WBC 3-5 per hpf (0-3) H 04/05/16 18:49 Ur Squamous Epith Cells Many per lpf (None-Few) H 04/05/16 18:49 Urine Bacteria None Seen per hpf (None-Few) 04/05/16 18:49 Hyaline Casts None Seen per lpf (None-Few) 04/05/16 18:49 Ur Culture Indicated? NO (NO) 04/05/16 18:49 Radiographic studies: I personally reviewed and interpreted patient's most recent imaging studies dated 04/05/16. I discussed the findings with the patient today. Chest X-Ray 04/05/16 15:58 IMPRESSION: 1. Interval placement of a right chest port with the tip overlying the mid SVC. 2. Slight interval increase in size of left upper lobe versus pleural based nodule. This could also be related to underlying bony metastasis when compared to the prior PET-CT. 3. Stable appearance of right apical lung mass. 4. Persistent left lower lobe pneumonia. D/ / 04/05/2016 16:32:05 Esmer Dave MD / Renetta Urbina Interpreting Provider: Esmer Dave MD Chest CTA 04/05/16 18:16 IMPRESSION: Negative study for pulmonary embolism. Interval development of consolidation and mild ground-glass opacity along with reticular opacities to left lower lobe as well as irregular but somewhat linear mild consolidation to right lower lobe since prior PET-CT 02/23/2016. Findings may be on the basis of multifocal pneumonia, but other etiologies are not excluded and continued follow-up is recommended. There is also some likely mucus plugging in subsegmental bronchi to the left lower lobe towards the region of consolidation. Redemonstration of mass to the right upper lobe, similar in size from prior PET-CT but with interval development of cavitation. Redemonstration of bony metastatic disease with soft tissue mass with bony destructive change to anterior left rib, enlarged from prior PET-CT. There is also a partially imaged soft tissue mass to the left retroperitoneum felt to reflect enlargement of soft tissue component of bony metastatic lesion previously noted to the left iliac crest on prior PET-CT. Emphysema. D/ / 04/05/2016 20:03:36 Lorenzo Morley MD / stephanie Interpreting Provider: Lorenzo Morley MD Impression/recommendations: Metastatic (stage IV non-small cell lung cancer) This is cycle 1 day 8 of his most recent chemotherapy which she appears to have tolerated fairly well with no unexpected side effects. He will need close monitoring with daily CBCs while hospitalized for a section of treatment-related cytopenias including neutropenia that is likely to occur between 10-14 days from his most recent dose of chemotherapy. We'll recommend transfusion support as needed to maintain hemoglobin of 7 or greater and platelet count of 20,000 or greater in the event of treatment- related cytopenias. If his ANC drops to less than 1000, we'll start Neupogen 300 g subcutaneous. Healthcare associated pneumonia: I agree with ongoing supportive measures including antibiotics. His PSA making steady, incremental improvement. We'll follow along and be happy to address interval oncologic questions/ concerns. We'll follow the patient along side you during this hospitalization but please do not hesitate to call regarding interval hematologic questions as they arise. Thank you for your excellent ongoing care for allowing us to see him while in- house. This report was created using voice recognition software and may contain errors. It was signed but not edited to expedite communication. Past Med Surg Social Fam HX - Past Medical History Medical history: cancer, COPD, GERD, hypertension, other Psychiatric history: no psych history - Past Surgical History Surgical History: other - Social History Smoking Status: Current every day smoker Smokeless Tobacco Status: No Alcohol use: occasionally Drug use: marijuana - Family History Sister Name: STARR SHERIDAN Age: 52 Family Member Ethnicity: Non- Living Status: Still Living Hx Family Endocrine Disorder: Yes (DM) Medications and Allergies Hydrochlorothiazide [Microzide] 25 mg PO DAILY 09/18/14 [History] Aspirin 81 mg PO DAILY #90 tab.chew 12/09/14 [Rx] Omeprazole [PriLOSEC] 40 mg PO DAILY #30 capsule 04/07/15 [Rx] Tiotropium [Spiriva] 18 mcg IH DAILY 04/07/15 [History] Albuterol Sulfate [Ventolin Hfa] 2 puff IH Q4H PRN 10/07/15 [History] Budesonide/Formoterol 160/4.5 [Symbicort 160/4.5] 2 puff IH BIDR 10/07/15 [ History] Montelukast [Singulair] 10 mg PO DAILY 11/15/15 [History] Calcium Carb, Citrate/Vit D3 [Calcium + D3 ER Tablet] 1 each PO DAILY #30 tablet.er 11/19/15 [Rx] Docusate Sodium [Colace] 100 mg PO BID PRN #60 02/10/16 [Rx] Dexamethasone [Decadron] 4 mg PO BID #40 tab 03/16/16 [Rx] Ondansetron [Zofran] 4 mg PO Q8HR PRN #90 tablet 03/16/16 [Rx] Prochlorperazine Maleate [Compazine] 10 mg PO Q8HR PRN #90 tablet 03/16/16 [Rx] Lidocaine/Prilocaine CREAM [Emla] 1 gm TP AD #1 tube 03/20/16 [Rx] Magic Mouthwash 5 ml PO Q4H PRN #240 ml 03/20/16 [Rx] OxyCODONE Immed Rel [Roxicodone 5 MG] 5 mg PO Q6HR PRN #90 tablet 03/30/16 [Rx] Ipratropium/Albuterol Neb [Duoneb] 3 ml IH QID PRN 04/05/16 [History] Lactose-Reduced Food [Ensure Liquid] 1 bottle PO TID 04/05/16 [History] Allergies No Known Allergies Allergy (Verified 04/05/16 15:28) Oncology - Exam - Constitutional Vitals: Temp Pulse Resp BP Pulse Ox 98.3 F 93 18 121/80 95 04/06/16 04:00 04/06/16 04:00 04/06/16 04:52 04/06/16 04:00 04/06/16 04:52 Oncology - Results - Labs Labs: Short CBC 04/06/16 Range/Units 05:30 WBC 9.5 (4.3-11.1) K/mcL Hgb 9.7 L (12.9-16.9) g/dL Hct 31.3 L (37.5-50.1) % Plt Count 666 H (140-400) K/mcL Neutrophils # 9.1 H (1.6-8.9) K/mcL BMP 04/06/16 05:30 Sodium 133 L Potassium 3.6 Chloride 96 L Carbon Dioxide 27 BUN 23 Creatinine 0.82 Glucose 168 H Calcium 8.7 Consult Discharge Plan - Plan Referrals: Courtney Valenzuela DO [Primary Care Provider] -
[2016-04-06] MEDS: Levofloxacin 750 MG/150 ML 750 MG/150 ML BAG IVPB SCH (07:47)
[2016-04-06] MEDS: Nicotine 21 MG PATCH.TD24 TD SCH (07:48)
[2016-04-06] MEDS: Aspirin 81 MG TAB.CHEW PO SCH (07:49)
[2016-04-06] MEDS: hydroCHLOROthiazide 25 MG TABLET PO SCH (07:49)
--- NOTE | 2016-04-06 08:58 | Electrocardiograph Report ---
[address] [place], [place] [address] Test Date: 2016-04-05 Pat Name: Philip Sheridan Department: 103 Room: [facility] Gender: M Phone Manager: : 1960 Requested By: Vasyl Zamarripa Order Number: [id number] Reading MD: Chapo Estevez MD Measurements Intervals [place] Rate: 111 P: 70 HI: 132 QRS: 72 QRSD: 74 T: 75 QT: 296 QTc: 361 Interpretive Statements SINUS TACHYCARDIA NONSPECIFIC T-WAVE ABNORMALITY Electronically Signed On 04-06-2016 8:56:35 EST by Chapo Estevez MD
[2016-04-06] MEDS: ENSURE PO SCH ×3 (09:02→20:28)
--- NOTE | 2016-04-06 13:59 | Internal Med Progress Note ---
<Krzysztof Magallanes - Last Filed: 04/06/16 17:54> Date of Encounter: 04/06/16 Time of Encounter: 10:05 - Assessment and plan (1) Healthcare-associated pneumonia Current Visit: Yes Status: Acute Assessment and plan: Patient with increased cough and dyspnea. Patient receiving chemotherapy. This would qualify him as HCAP. May also have a post obstructive component. Will continue Vancomycin/Zosyn/and Levofloxacin. I did consider switching Zosyn to Cefepime given the lower incidence of NAE. However he good anaerobic coverage given his large cavitary lung lesion. Blood an d sputum cultures ordered and are pending. (2) Lung cancer Current Visit: Yes Status: Acute Assessment and plan: Possibly primary. poorly differentiated carcinoma from bone biopsy. Management per oncology appreciate their assistance. Qualifiers: Qualified Code(s): C34.90 - Malignant neoplasm of unspecified part of unspecified bronchus or lung (3) Underweight Current Visit: Yes Status: Acute Assessment and plan: nutrition consult. (4) Leukocytosis Current Visit: Yes Status: Acute Assessment and plan: resolved Qualifiers: Qualified Code(s): D72.829 - Elevated white blood cell count, unspecified (5) Anemia Current Visit: Yes Status: Acute Assessment and plan: Etiology unclear. denies any bleeding Specifically he denies hemoptyisis chemotherapy was on 03/30/16. Most likley the anemia is secondary to this. appreciate Hematologies recommendations. We will continue daily CBCs to monitor for Neutropenia Qualifiers: Qualified Code(s): D64.9 - Anemia, unspecified (6) Essential thrombocytosis Current Visit: Yes Status: Acute Assessment and plan: management per oncology (7) Hyponatremia Current Visit: Yes Status: Acute Assessment and plan: mild euvolemic likely nutritional. continue to monitor (8) Smoking Current Visit: Yes Status: Acute Assessment and plan: advise cessation. declines nicotine patch. (9) DVT prophylaxis Current Visit: Yes Status: Acute Assessment and plan: on Lovenox - Subjective Interval history: Mr. Sheridan is a 56 year old male with recent diagnosis of poorly undifferentiated carcinoma. He has a large cavernous mass in the right upper lobe of the lung as well as an iliac crest mass that was positive on PET CT. He began chemotherapy on 03/30/16. He was admitted on 03/01/17 for HCAP. This AM Mr. Sheridan states that he is feeling some better. He states that he is breathing much easier this AM. He denies hemoptysis. He denies any further complaints or concerns. At this time he has no further complaints or concerns at this time. - Constitutional Vitals: Temp Pulse Resp BP Pulse Ox 98.0 F 106 20 120/83 97 04/06/16 11:41 04/06/16 11:43 04/06/16 11:43 04/06/16 11:43 04/06/16 11:43 Exam: General: Mr. Sheridan is a pleasant 56-year-old male who is underweight and appears to be older than his stated age. He is alert and orientated to person place time and situation. He is lying in bed appears to be comfortable and in no acute distress at this time. HEENT: Head is normocephalic and atraumatic. There is what appears to be some beginning bitemporal wasting. Anicteric sclera, pupils equally round reactive to light and accommodation. Normal external appearance of ears nose and eyes. Moist mucous membranes. Dentition is intact but poor with multiple caries. Posterior pharynx is pink without exudate. The tongue uvula and trachea are all midline. There is no cervical or supraclavicular lymphadenopathy present. No thyromegaly or neck mass. Neck is supple. Heart: Regular rate and rhythm without murmurs rubs or gallops. No JVD. No carotid bruits. Radial pulses are 2 out of 4 and synchronous. Lungs: He has a normal effort of breathing and converses easily. He does have some rhonchi and wheezing in the right posterior upper lung field. This have increased tactile fremitus over the upper right lung field. Normal rise and expanse of the chest wall bilaterally. Abdomen: Abdomen is soft, nondistended, nontender to palpation. Bowel sounds are positive. There is no organomegaly or bruits noted on exam. Musculoskeletal: Grossly normal for age no gross deformity.He does have diffuse muscle atrophy. That is mild. Integument: No rashes or lesions. Extremities: There is no clubbing, cyanosis or edema. Internal Medicine: Result - Labs CBC & Chem 7: 04/06/16 05:30 04/06/16 05:30 Labs: Short CBC 04/06/16 Range/Units 05:30 WBC 9.5 (4.3-11.1) K/mcL Hgb 9.7 L (12.9-16.9) g/dL Hct 31.3 L (37.5-50.1) % Plt Count 666 H (140-400) K/mcL Neutrophils # 9.1 H (1.6-8.9) K/mcL BMP 04/06/16 05:30 Sodium 133 L Potassium 3.6 Chloride 96 L Carbon Dioxide 27 BUN 23 Creatinine 0.82 Glucose 168 H Calcium 8.7 - ABG Interpretation ABG results: ABG ABG pH 7.42 pH Units (7.32-7.45) 04/06/16 06:22 ABG pCO2 46 mmHg (35-45) H 04/06/16 06:22 ABG pO2 72 mmHg (85-104) L 04/06/16 06:22 ABG O2 Saturation 95 % (95-98) 04/06/16 06:22 PT/INR, D-dimer PT 13.7 Seconds (9.4-12.1) H 04/05/16 17:09 - VTE Documentation of Mechanical Device: Graduated compression elastic hosiery Consult Discharge Plan - Plan Referrals: Courtney Valenzuela DO [Primary Care Provider] - <Justin Dinh - Last Filed: 04/06/16 18:25> Date of Encounter: 04/06/16 - Constitutional Vitals: Temp Pulse Resp BP Pulse Ox 98.3 F 98 18 126/83 95 04/06/16 14:11 04/06/16 14:11 04/06/16 15:18 04/06/16 14:11 04/06/16 15:24 Internal Medicine: Result - Labs CBC & Chem 7: 04/06/16 05:30 04/06/16 05:30 Labs: Short CBC 04/06/16 Range/Units 05:30 WBC 9.5 (4.3-11.1) K/mcL Hgb 9.7 L (12.9-16.9) g/dL Hct 31.3 L (37.5-50.1) % Plt Count 666 H (140-400) K/mcL Neutrophils # 9.1 H (1.6-8.9) K/mcL BMP 04/06/16 05:30 Sodium 133 L Potassium 3.6 Chloride 96 L Carbon Dioxide 27 BUN 23 Creatinine 0.82 Glucose 168 H Calcium 8.7 - ABG Interpretation ABG results: ABG ABG pH 7.42 pH Units (7.32-7.45) 04/06/16 06:22 ABG pCO2 46 mmHg (35-45) H 04/06/16 06:22 ABG pO2 72 mmHg (85-104) L 04/06/16 06:22 ABG O2 Saturation 95 % (95-98) 04/06/16 06:22 PT/INR, D-dimer PT 13.7 Seconds (9.4-12.1) H 04/05/16 17:09 - Attending Attestation I examined this patient and my medical decision-making was reviewed with the [employer] ENGINEER/PA/Advanced Practice Nurse/Resident Physician. I agree with the documented findings, disposition and treatment plan as described except to the extent set forth below. Mr. Sheridan was seen and examined during rounds this morning. Patient with underlying lung cancer admitted due to pneumonia. Continue with Zosyn, vancomycin and Levaquin. Doing clinically better, still short of breath. Patient on long-term oxygen therapy, continue with oxygen supplementation via nasal cannula. Discussed with the patient in detail. High risk of developing complications, we need to monitor the vancomycin levels.
[2016-04-06] MEDS: *HR* HYDROmorphone (PF) 1 MG/ML SYRINGE IVP PRN ×2 (14:52→22:10)
[2016-04-06] MEDS: Vancomycin 1,250 MG in D5% in Water 250 ML IVPB SCH (14:53)
[2016-04-06] MEDS ORDERED: Vancomycin 750 MG in D5% in Water 250 ML IVPB SCH (22:00)
[2016-04-07] MEDS: Piperacillin/Tazobactam 3.375 GM in D5% in Water (Mini-Bag+) 100 ML IVPB SCH ×3 (00:06→17:35)
[2016-04-07 00:56] LABS: Adenovirus Not Detected (Not Detect); Bordetella Pertussis Not Detected (Not Detect); Chlamydophila pneumoniae Not Detected (Not Detect); Coronavirus 229E Not Detected (Not Detect); Coronavirus HKU1 Not Detected (Not Detect); Coronavirus NL63 Not Detected (Not Detect); Coronavirus OC43 Not Detected (Not Detect); Human Metapneumovirus Not Detected (Not Detect); Human Rhinovirus/Enterovirus Not Detected (Not Detect); Influenza A Subtype 2009 H1 Not Detected (Not Detect); Influenza A Untypeable Not Detected (Not Detect); Influenza B Not Detected (Not Detect); Mycoplasma pneumoniae Not Detected (Not Detect); Parainfluenza Virus 1 Not Detected (Not Detect); Parainfluenza Virus 2 Not Detected (Not Detect); Parainfluenza Virus 3 Not Detected (Not Detect); Parainfluenza Virus 4 Not Detected (Not Detect); Respiratory Syncytial Virus Not Detected (Not Detect)
[2016-04-07] MEDS: Ipratropium/Albuterol Neb 3 ML IH SCH ×4 (04:10→22:22)
[2016-04-07 05:00] LABS: Basophils % 0.1 %; Eosinophils % 0.1 %; Hematocrit 26.9 % (37.5-50.1); Hemoglobin 8.6 g/dL (12.9-16.9); Immature Granulocytes % 0.7 % (0-4); Lymphocytes # 0.7 K/mcL (0.6-4.6); Lymphocytes % 7.5 %; Mean Corpuscular Hemoglobin 26.2 pg (28.0-33.3); Mean Platelet Volume 9.9 fL (9.4-12.4); Monocytes % 11.1 %; Neutrophils # 7.1 K/mcL (1.6-8.9); Platelet Count 668 K/mcL (140-400); Red Blood Count 3.28 M/mcL (4.19-5.50); Red Cell Distribution Width 14.6 % (11.5-14.5); Segmented Neutrophils % 80.5 %
[2016-04-07 05:10] LABS: BUN/Creatinine Ratio 23 (6-26); Blood Urea Nitrogen 18 mg/dL (8-26); Calcium 8.2 mg/dL (8.6-10.8); Carbon Dioxide 25 mEq/L (19-29); Chloride 101 mEq/L (98-109); Glucose 110 mg/dL (70-99); Osmolality,Calculated 283 (280-300); Potassium 3.1 mEq/L (3.5-4.5); Sodium 135 mEq/L (136-145); eGFR For African Americans > 60 (> 60); eGFR For Non-African Americans > 60 (> 60)
[2016-04-07] MEDS: *HR* HYDROmorphone (PF) 1 MG/ML SYRINGE IVP PRN ×3 (06:38→22:10)
[2016-04-07] MEDS: *HR* Enoxaparin 40 MG/0.4 ML SYRINGE SQ SCH (06:38)
[2016-04-07] MEDS: Levofloxacin 750 MG/150 ML 750 MG/150 ML BAG IVPB SCH (09:12)
[2016-04-07] MEDS: hydroCHLOROthiazide 25 MG TABLET PO SCH (09:13)
[2016-04-07] MEDS: Nicotine 21 MG PATCH.TD24 TD SCH (09:13)
[2016-04-07] MEDS: Aspirin 81 MG TAB.CHEW PO SCH (09:13)
[2016-04-07] MEDS: 0.9 % Sodium Chloride 1,000 ML IVC SCH (09:14)
[2016-04-07] MEDS: ENSURE PO SCH ×3 (09:14→22:11)
[2016-04-07] MEDS ORDERED: Aminoglycoside Consult 1 EACH MC ONE (09:48)
[2016-04-07] MEDS: Vancomycin 1,250 MG in D5% in Water 250 ML IVPB SCH (14:57)
[2016-04-07] MEDS: *HR* OxyCODONE Immed Rel 5 MG TABLET PO PRN ×2 (16:04→20:56)
--- NOTE | 2016-04-07 18:04 | Internal Med Progress Note ---
Date of Encounter: 04/07/16 Time of Encounter: 18:02 - Assessment and plan (1) HCAP (healthcare-associated pneumonia) Current Visit: Yes Status: Acute Assessment and plan: continue with levaquin, vanc and zosyn. monitor vanc levels. high risk medication. (2) DVT prophylaxis Current Visit: Yes Status: Acute (3) Acute exacerbation of chronic obstructive airways disease Current Visit: Yes Status: Acute Assessment and plan: due to hcap (4) Lung cancer Current Visit: Yes Status: Acute Assessment and plan: Possibly primary. poorly differentiated carcinoma from bone biopsy. Management per oncology appreciate their assistance. Qualifiers: Laterality: unspecified laterality Lung location: unspecified part of lung Qualified Code(s): C34.90 - Malignant neoplasm of unspecified part of unspecified bronchus or lung (5) Tobacco abuse Current Visit: No Status: Chronic - Time Spent With Patient 25 - 35 minutes - Subjective Interval history: Patient was seen and examined in grounds. He is complaining of pain, however indicates that when he gets his pain control medication and is helping. Not complaining of fever, mild shortness of breath. The patient denies diarrhea. - Constitutional Vitals: Temp Pulse Resp BP Pulse Ox 98.4 F 99 14 130/83 98 04/07/16 15:35 04/07/16 15:35 04/07/16 15:35 04/07/16 15:35 04/07/16 15:35 General appearance: Present: cachectic, cooperative, pleasant, no acute distress , underweight, answers questions appropriately - Head Head exam: Present: atraumatic, normocephalic - Eye Eye exam: Present: PERRL, conjuntiva pink, sclera anicteric Pupils: Present: PERRL - Neck Neck exam general surgery: Present: supple, trachea midline. Absent: lymphadenopathy - Respiratory Respiratory exam: Present: decreased breath sounds. Absent: accessory muscle use, rales, rhonchi, wheezes - Cardiovascular Cardiovascular exam: Present: RRR, +S1, +S2. Absent: diastolic murmur, gallop, rubs, systolic murmur - GI/Abdominal GI/Abdominal exam: Present: normal bowel sounds, soft, no peritoneal signs. Absent: distended, tenderness - Extremities Exam Extremities exam: Present: warm, radial pulses palpable and symetrical. Absent : calf tenderness, cyanotic, pedal edema - Neurological Exam Neurological exam: Present: CN II-XII intact, oriented X3, no focal deficits. Absent: pronater drift, facial droop, speech deficit - Skin Skin exam: Present: dry, intact Internal Medicine: Result - Labs CBC & Chem 7: 04/07/16 04:30 04/07/16 04:30 - ABG Interpretation ABG results: ABG ABG pH 7.42 pH Units (7.32-7.45) 04/06/16 06:22 ABG pCO2 46 mmHg (35-45) H 04/06/16 06:22 ABG pO2 72 mmHg (85-104) L 04/06/16 06:22 ABG O2 Saturation 95 % (95-98) 04/06/16 06:22 PT/INR, D-dimer PT 13.7 Seconds (9.4-12.1) H 04/05/16 17:09 - VTE Documentation of Mechanical Device: Graduated compression elastic hosiery Consult Discharge Plan - Plan Referrals: Courtney Valenzuela DO [Primary Care Provider] -
[2016-04-08] MEDS: Piperacillin/Tazobactam 3.375 GM in D5% in Water (Mini-Bag+) 100 ML IVPB SCH ×4 (00:38→23:44)
[2016-04-08] MEDS ORDERED: Vancomycin 1,000 MG in D5% in Water 250 ML IVPB SCH (03:00)
[2016-04-08] MEDS: Ipratropium/Albuterol Neb 3 ML IH SCH ×4 (03:49→22:30)
[2016-04-08] MEDS: *HR* HYDROmorphone (PF) 1 MG/ML SYRINGE IVP PRN ×3 (04:00→17:21)
[2016-04-08 04:28] LABS: Basophils % 0.2 %; Eosinophils % 0.1 %; Hematocrit 28.3 % (37.5-50.1); Hemoglobin 8.7 g/dL (12.9-16.9); Immature Granulocytes % 0.9 % (0-4); Lymphocytes # 0.6 K/mcL (0.6-4.6); Lymphocytes % 6.9 %; Mean Corpuscular HGB Conc 30.7 g/dL (31.6-35.5); Mean Corpuscular Hemoglobin 25.4 pg (28.0-33.3); Mean Corpuscular Volume 82.5 fL (83.0-100.0); Mean Platelet Volume 9.6 fL (9.4-12.4); Monocytes # 1.3 K/mcL (0.0-1.3); Monocytes % 14.2 %; Platelet Count 722 K/mcL (140-400); Red Blood Count 3.43 M/mcL (4.19-5.50); Red Cell Distribution Width 14.9 % (11.5-14.5); Segmented Neutrophils % 77.7 %
[2016-04-08 04:41] LABS: BUN/Creatinine Ratio 16 (6-26); Blood Urea Nitrogen 13 mg/dL (8-26); Calcium 8.6 mg/dL (8.6-10.8); Carbon Dioxide 25 mEq/L (19-29); Chloride 99 mEq/L (98-109); Glucose 109 mg/dL (70-99); Magnesium 1.2 mg/dL (1.6-2.6); Osmolality,Calculated 275 (280-300); Potassium 3.8 mEq/L (3.5-4.5); Sodium 132 mEq/L (136-145); eGFR For African Americans > 60 (> 60); eGFR For Non-African Americans > 60 (> 60)
[2016-04-08] MEDS ORDERED: Magnesium Sulfate 2 GM in D5% in Water 100 ML IVPB ONE (05:17)
[2016-04-08] MEDS: *HR* Enoxaparin 40 MG/0.4 ML SYRINGE SQ SCH (06:26)
[2016-04-08] MEDS: Levofloxacin 750 MG/150 ML 750 MG/150 ML BAG IVPB SCH (08:38)
[2016-04-08] MEDS: ENSURE PO SCH ×3 (08:39→20:13)
[2016-04-08] MEDS: hydroCHLOROthiazide 25 MG TABLET PO SCH (08:39)
[2016-04-08] MEDS: Aspirin 81 MG TAB.CHEW PO SCH (08:39)
[2016-04-08] MEDS: Nicotine 21 MG PATCH.TD24 TD SCH (08:40)
[2016-04-08] MEDS: *HR* OxyCODONE Immed Rel 5 MG TABLET PO PRN ×2 (12:30→20:13)
[2016-04-08] MEDS: Magnesium Oxide 400 MG TABLET PO SCH ×2 (12:30→20:12)
[2016-04-08] MEDS ORDERED: 0.9 % Sodium Chloride 500 ML IVC ONE (12:59)
--- NOTE | 2016-04-08 16:31 | Internal Med Progress Note ---
<Krzysztof Magallanes - Last Filed: 04/08/16 16:29> Date of Encounter: 04/08/16 Time of Encounter: 16:29 - Assessment and plan (1) Healthcare-associated pneumonia Current Visit: Yes Status: Acute Assessment and plan: Patient with increased cough and dyspnea. Patient receiving chemotherapy. This would qualify him as HCAP. May also have a post obstructive component. Patient is doing well/improving. No growth from blood or sputum cultures to date. Will continue Zosyn/and Levofloxacin. Deescalate antibiotics today adn stop Vancomycin. will likely stop levofloxacin in the AM. (2) Lung cancer Current Visit: Yes Status: Acute Assessment and plan: Possibly primary. poorly differentiated carcinoma from bone biopsy. Management per oncology appreciate their assistance. Qualifiers: Laterality: unspecified laterality Lung location: unspecified part of lung Qualified Code(s): C34.90 - Malignant neoplasm of unspecified part of unspecified bronchus or lung (3) Underweight Current Visit: Yes Status: Acute Assessment and plan: nutrition consult. (4) Leukocytosis Current Visit: Yes Status: Resolved Assessment and plan: resolved Qualifiers: Qualified Code(s): D72.829 - Elevated white blood cell count, unspecified (5) Anemia Current Visit: Yes Status: Acute Assessment and plan: Etiology unclear. denies any bleeding Specifically he denies hemoptyisis slight trend down in H[facility] chemotherapy was on 03/30/16. Most likley the anemia is secondary to this. appreciate Hematologies recommendations. We will continue daily CBCs to monitor for Neutropenia Qualifiers: Qualified Code(s): D64.9 - Anemia, unspecified (6) Essential thrombocytosis Current Visit: Yes Status: Acute Assessment and plan: management per oncology (7) Hyponatremia Current Visit: Yes Status: Acute Assessment and plan: mild euvolemic likely nutritional. continue to monitor (8) Smoking Current Visit: Yes Status: Acute Assessment and plan: advise cessation. declines nicotine patch. (9) Sinus tachycardia Current Visit: Yes Status: Acute Assessment and plan: appears dry on exam. Will give IV fluids. If dose not resolved will test for other etiologies. (10) DVT prophylaxis Current Visit: Yes Status: Acute Assessment and plan: on Lovenox - Subjective Interval history: No major events overnight. Patient states that he is feeling better and feels near his baseline. He states he is eating and drinking well. However his significant other reports otherwise. He denies any hemoptysis or bleeding. He has no complaints at this time. - Constitutional Vitals: Temp Pulse Resp BP Pulse Ox 98.2 F 106 18 123/84 97 04/08/16 15:19 04/08/16 15:19 04/08/16 15:19 04/08/16 15:19 04/08/16 15:19 General appearance: Present: cachectic, cooperative, pleasant, no acute distress , underweight, answers questions appropriately - Head Head exam: Present: atraumatic, normocephalic - Eye Eye exam: Present: PERRL, conjuntiva pink, sclera anicteric Pupils: Present: PERRL - ENT ENT exam: Present: mucous membranes moist Additional comments: poor dentition - Respiratory Respiratory exam: Present: CTAB. Absent: accessory muscle use, rales, rhonchi, wheezes - Cardiovascular Cardiovascular exam: Present: RRR, +S1, +S2, tachycardia. Absent: diastolic murmur, gallop, rubs, systolic murmur - GI/Abdominal GI/Abdominal exam: Present: normal bowel sounds, soft, no peritoneal signs. Absent: distended, tenderness - Extremities Exam Extremities exam: Present: warm, radial pulses palpable and symetrical. Absent : calf tenderness, cyanotic, pedal edema - Skin Skin exam: Present: dry, intact Internal Medicine: Result - Labs CBC & Chem 7: 04/08/16 04:10 04/08/16 04:10 Labs: Short CBC 04/08/16 Range/Units 04:10 WBC 9.0 (4.3-11.1) K/mcL Hgb 8.7 L (12.9-16.9) g/dL Hct 28.3 L (37.5-50.1) % Plt Count 722 H (140-400) K/mcL Neutrophils # 7.0 (1.6-8.9) K/mcL BMP 04/08/16 04:10 Sodium 132 L Potassium 3.8 Chloride 99 Carbon Dioxide 25 BUN 13 Creatinine 0.79 Glucose 109 H Calcium 8.6 - ABG Interpretation ABG results: ABG ABG pH 7.42 pH Units (7.32-7.45) 04/06/16 06:22 ABG pCO2 46 mmHg (35-45) H 04/06/16 06:22 ABG pO2 72 mmHg (85-104) L 04/06/16 06:22 ABG O2 Saturation 95 % (95-98) 04/06/16 06:22 PT/INR, D-dimer PT 13.7 Seconds (9.4-12.1) H 04/05/16 17:09 - VTE Documentation of Mechanical Device: Graduated compression elastic hosiery Consult Discharge Plan - Plan Referrals: Courtney Valenzuela DO [Primary Care Provider] - <Justin Dinh - Last Filed: 04/08/16 18:02> Date of Encounter: 04/08/16 - Assessment and plan (1) HCAP (healthcare-associated pneumonia) Current Visit: Yes Status: Acute (2) DVT prophylaxis Current Visit: Yes Status: Acute (3) Acute exacerbation of chronic obstructive airways disease Current Visit: Yes Status: Acute (4) Lung cancer Current Visit: Yes Status: Acute Qualifiers: Laterality: unspecified laterality Lung location: unspecified part of lung Qualified Code(s): C34.90 - Malignant neoplasm of unspecified part of unspecified bronchus or lung (5) Tobacco abuse Current Visit: No Status: Chronic - Constitutional Vitals: Temp Pulse Resp BP Pulse Ox 98.2 F 106 18 123/84 97 04/08/16 15:19 04/08/16 15:19 04/08/16 15:19 04/08/16 15:19 04/08/16 15:19 Internal Medicine: Result - Labs CBC & Chem 7: 04/08/16 04:10 04/08/16 04:10 Labs: Short CBC 04/08/16 Range/Units 04:10 WBC 9.0 (4.3-11.1) K/mcL Hgb 8.7 L (12.9-16.9) g/dL Hct 28.3 L (37.5-50.1) % Plt Count 722 H (140-400) K/mcL Neutrophils # 7.0 (1.6-8.9) K/mcL BMP 04/08/16 04:10 Sodium 132 L Potassium 3.8 Chloride 99 Carbon Dioxide 25 BUN 13 Creatinine 0.79 Glucose 109 H Calcium 8.6 - ABG Interpretation ABG results: ABG ABG pH 7.42 pH Units (7.32-7.45) 04/06/16 06:22 ABG pCO2 46 mmHg (35-45) H 04/06/16 06:22 ABG pO2 72 mmHg (85-104) L 04/06/16 06:22 ABG O2 Saturation 95 % (95-98) 04/06/16 06:22 PT/INR, D-dimer PT 13.7 Seconds (9.4-12.1) H 04/05/16 17:09 - Attending Attestation I examined this patient and my medical decision-making was reviewed with the CLOTH FOLDER HAND/PA/Advanced Practice Nurse/Resident Physician. I agree with the documented findings, disposition and treatment plan as described except to the extent set forth below. D/C vancomycin, continue with iv antibiotics, oxygen and pain control meds. D/W patient and his family.
--- NOTE | 2016-04-08 17:25 | Oncology Inp Progress Note ---
Date of Encounter: 04/08/16 Time of Encounter: 17:00 (1) HCAP (healthcare-associated pneumonia) Current Visit: Yes Status: Acute Assessment and plan: Multifocal, bilateral, infiltrates status post first cycle of chemotherapy for lung cancer, stage IV, recently diagnosed carboplatin and Taxol, PDL1 negative. Likely pneumonia has felt improved on Zosyn and Levaquin. CT chest findings reviewed, suggesting pneumonia, stable right upper lobe mass with cavitation as Colace for constipation. Nutrition consulted for supplements. Iamging and plan of care discussed with patient/family Oncology: Subj Interval history: Congestion has improved, shortness of breath better. He is not she denied has a poor appetite, constipation. - Constitutional Vitals: Vital Signs Temp Pulse Resp BP Pulse Ox 04/08/16 15:19 98.2 F 106 18 123/84 97 04/08/16 12:47 112 129/89 04/08/16 12:15 124/86 04/08/16 10:54 97.3 F L 105 18 167/113 98 04/08/16 06:36 97.6 F 100 18 170/96 97 04/08/16 04:08 98.2 F 102 14 139/90 97 04/08/16 03:49 18 98 04/07/16 23:28 98.2 F 107 16 135/84 98 04/07/16 22:22 16 99 04/07/16 19:42 98.6 F 97 17 131/85 98 Intake and Output 04/08/16 04/08/16 04/08/16 07:59 15:59 23:59 Intake Total 350 / 350 454 / 454 Output Total 1125 / 1125 500 / 500 Balance -775 / -775 -46 / -46 Intake: IV Fluids 350 / 350 354 / 354 Levaquin 750mg/150 mL 750 150 / 150 mg In 150 ml @ 100 mls/ hr IVPB DAILY RENÉ Rx#: [id number] Magnesium Sulfate 2 GM In 104 / 104 Dextrose 5% 100 ML @ 100 mls/hr IVPB ONCE ONE Rx# :[id number] Zosyn 3.375 GM In 100 / 100 100 / 100 Dextrose 5% (Minibag+) 100 ML 100 ML @ 25 mls/hr IVPB Q8HR RENÉ Rx#: [id number] Vancocin 1,000 MG In 250 / 250 Dextrose 5% 250 ML @ 166. 667 mls/hr IVPB Q12H RENÉ Rx#:[id number] Oral 100 / 100 Output: Urine 1125 / 1125 500 / 500 Other: Meal Lunch Percent of Meal Consumed 10% # Voids 1 General appearance: mild distress, thin - Head Head exam: Present: atraumatic, normal inspection - Eye Eye exam: Present: sclera anicteric - ENT ENT exam: Present: mucous membranes moist Additional comments: on oxygen NC - Respiratory Respiratory exam: Present: CTAB Additional comments: clear anteriorly - Cardiovascular Cardiovascular exam: Present: +S1, +S2 - GI/Abdominal GI/Abdominal exam: Present: normal bowel sounds, soft - Extremities Exam Extremities exam: Present: normal inspection - Neurological Exam Neurological exam: Present: alert, oriented X3 - Psychiatric Psychiatric exam: Present: normal affect Oncology: Obj Data - Labs CBC & Chem 7: 04/08/16 04:10 04/08/16 04:10 Labs: Laboratory Results - last 24 hr 04/08/16 04/08/16 04:10 04:10 WBC 9.0 RBC 3.43 L Hgb 8.7 L Hct 28.3 L MCV 82.5 L MCH 25.4 L MCHC 30.7 L RDW 14.9 H Plt Count 722 H MPV 9.6 Immature Gran % 0.9 Seg Neutrophils % 77.7 Lymphocytes % 6.9 Monocytes % 14.2 Eosinophils % 0.1 Basophils % 0.2 Neutrophils # 7.0 Lymphocytes # 0.6 Monocytes # 1.3 Eosinophils # 0.0 Basophils # 0.0 Sodium 132 L Potassium 3.8 Chloride 99 Carbon Dioxide 25 BUN 13 Creatinine 0.79 Est GFR ( Amer) > 60 Est GFR (Non-Af Amer) > 60 BUN/Creatinine Ratio 16 Glucose 109 H Calculated Osmolality 275 L Calcium 8.6 Magnesium 1.2 L - Imaging and cardiology CT scan - chest Status: image reviewed by me - ABG Interpretation ABG results: ABG ABG pH 7.42 pH Units (7.32-7.45) 04/06/16 06:22 ABG pCO2 46 mmHg (35-45) H 04/06/16 06:22 ABG pO2 72 mmHg (85-104) L 04/06/16 06:22 ABG O2 Saturation 95 % (95-98) 04/06/16 06:22 PT/INR, D-dimer PT 13.7 Seconds (9.4-12.1) H 04/05/16 17:09 Consult Discharge Plan - Plan Referrals: Courtney Valenzuela DO [Primary Care Provider] -
[2016-04-08] MEDS: Sennosides/Docusate Sodium TABLET PO SCH (20:12)
[2016-04-09] MEDS: *HR* HYDROmorphone (PF) 1 MG/ML SYRINGE IVP PRN ×3 (00:51→20:10)
[2016-04-09] MEDS: Ipratropium/Albuterol Neb 3 ML IH SCH ×4 (04:19→22:30)
[2016-04-09 04:48] LABS: Basophils % 0.2 %; Eosinophils % 0.2 %; Hematocrit 29.3 % (37.5-50.1); Immature Granulocytes % 0.6 % (0-4); Lymphocytes # 0.8 K/mcL (0.6-4.6); Lymphocytes % 8.5 %; Mean Corpuscular HGB Conc 30.7 g/dL (31.6-35.5); Mean Corpuscular Hemoglobin 25.4 pg (28.0-33.3); Mean Corpuscular Volume 82.5 fL (83.0-100.0); Mean Platelet Volume 9.5 fL (9.4-12.4); Monocytes # 1.4 K/mcL (0.0-1.3); Monocytes % 15.3 %; Neutrophils # 6.8 K/mcL (1.6-8.9); Platelet Count 783 K/mcL (140-400); Red Blood Count 3.55 M/mcL (4.19-5.50); Segmented Neutrophils % 75.2 %
[2016-04-09 04:49] LABS: BUN/Creatinine Ratio 15 (6-26); Blood Urea Nitrogen 13 mg/dL (8-26); Calcium 8.6 mg/dL (8.6-10.8); Carbon Dioxide 27 mEq/L (19-29); Chloride 96 mEq/L (98-109); Glucose 100 mg/dL (70-99); Osmolality,Calculated 276 (280-300); Potassium 3.8 mEq/L (3.5-4.5); Sodium 133 mEq/L (136-145); eGFR For African Americans > 60 (> 60); eGFR For Non-African Americans > 60 (> 60)
[2016-04-09] MEDS: *HR* Enoxaparin 40 MG/0.4 ML SYRINGE SQ SCH (05:52)
[2016-04-09] MEDS: *HR* OxyCODONE Immed Rel 5 MG TABLET PO PRN ×3 (05:52→23:02)
[2016-04-09] MEDS: Levofloxacin 750 MG/150 ML 750 MG/150 ML BAG IVPB SCH (07:40)
[2016-04-09] MEDS: Magnesium Oxide 400 MG TABLET PO SCH ×2 (08:53→20:09)
[2016-04-09] MEDS: Sennosides/Docusate Sodium TABLET PO SCH ×2 (08:53→20:09)
[2016-04-09] MEDS: hydroCHLOROthiazide 25 MG TABLET PO SCH (08:54)
[2016-04-09] MEDS: Piperacillin/Tazobactam 3.375 GM in D5% in Water (Mini-Bag+) 100 ML IVPB SCH ×3 (08:54→23:02)
[2016-04-09] MEDS: Aspirin 81 MG TAB.CHEW PO SCH (08:54)
[2016-04-09] MEDS: Nicotine 21 MG PATCH.TD24 TD SCH (08:54)
[2016-04-09] MEDS: ENSURE PO SCH ×3 (09:12→20:03)
--- NOTE | 2016-04-09 18:32 | Internal Med Progress Note ---
<Krzysztof Magallanes - Last Filed: 04/09/16 18:35> Date of Encounter: 04/09/16 Time of Encounter: 12:15 - Assessment and plan (1) Healthcare-associated pneumonia Current Visit: Yes Status: Acute Assessment and plan: Patient with increased cough and dyspnea. Patient receiving chemotherapy. This would qualify him as HCAP. May also have a post obstructive component. Patient is doing well/improving. No growth from blood or sputum cultures to date. Will continue Zosyn Deescalate antibiotics today levofloxacin Possible DC in AM with Augmentin ( possible postobstructive PNA with cancer) (2) Lung cancer Current Visit: Yes Status: Acute Assessment and plan: Possibly primary. poorly differentiated carcinoma from bone biopsy. Management per oncology appreciate their assistance. Qualifiers: Laterality: unspecified laterality Lung location: unspecified part of lung Qualified Code(s): C34.90 - Malignant neoplasm of unspecified part of unspecified bronchus or lung (3) Underweight Current Visit: Yes Status: Acute Assessment and plan: nutrition consult. (4) Leukocytosis Current Visit: Yes Status: Resolved Assessment and plan: resolved Qualifiers: Qualified Code(s): D72.829 - Elevated white blood cell count, unspecified (5) Anemia Current Visit: Yes Status: Acute Assessment and plan: denies any bleeding Specifically he denies hemoptyisis Hg improving today. chemotherapy was on 03/30/16. Most likley the anemia is secondary to this. appreciate Hematologies recommendations. We will continue daily CBCs to monitor for Neutropenia Qualifiers: Qualified Code(s): D64.9 - Anemia, unspecified (6) Essential thrombocytosis Current Visit: Yes Status: Acute Assessment and plan: management per oncology Holding hydroxyurea at this time per oncology. monitor for rebound thrombocytosis. will defer to Hematology as to when to resume. (7) Hyponatremia Current Visit: Yes Status: Acute Assessment and plan: mild euvolemic likely nutritional. continue to monitor (8) Smoking Current Visit: Yes Status: Acute Assessment and plan: advise cessation. nicotine patch. (9) DVT prophylaxis Current Visit: Yes Status: Acute Assessment and plan: on Lovenox (10) Sinus tachycardia Current Visit: Yes Status: Acute Assessment and plan: resolved with hydration - Subjective Interval history: No major events overnight. Patient states that he is feeling better and feels near his baseline. He states he is eating and drinking well. He denies any hemoptysis or bleeding. He has no complaints at this time. - Constitutional Vitals: Temp Pulse Resp BP Pulse Ox 98.6 F 109 18 109/76 93 L 04/09/16 15:14 04/09/16 15:14 04/09/16 15:14 04/09/16 15:14 04/09/16 15:14 General appearance: Present: cachectic, cooperative, pleasant, no acute distress , underweight, answers questions appropriately Exam: Thin/Cachectic - Head Head exam: Present: atraumatic, normocephalic - Eye Eye exam: Present: PERRL, conjuntiva pink, sclera anicteric Pupils: Present: PERRL - Neck Neck exam general surgery: Present: supple, trachea midline. Absent: lymphadenopathy - Respiratory Respiratory exam: Present: CTAB. Absent: accessory muscle use, rales, rhonchi, wheezes - Cardiovascular Cardiovascular exam: Present: RRR, +S1, +S2. Absent: diastolic murmur, gallop, rubs, systolic murmur - GI/Abdominal GI/Abdominal exam: Present: normal bowel sounds, soft, no peritoneal signs. Absent: distended, tenderness - Extremities Exam Extremities exam: Present: warm, radial pulses palpable and symetrical. Absent : calf tenderness, cyanotic, pedal edema - Skin Skin exam: Present: dry, intact Internal Medicine: Result - Labs CBC & Chem 7: 04/09/16 04:18 04/09/16 04:18 Labs: Short CBC 04/09/16 Range/Units 04:18 WBC 9.0 (4.3-11.1) K/mcL Hgb 9.0 L (12.9-16.9) g/dL Hct 29.3 L (37.5-50.1) % Plt Count 783 H (140-400) K/mcL Neutrophils # 6.8 (1.6-8.9) K/mcL BMP 04/09/16 04:18 Sodium 133 L Potassium 3.8 Chloride 96 L Carbon Dioxide 27 BUN 13 Creatinine 0.85 Glucose 100 H Calcium 8.6 - ABG Interpretation ABG results: ABG ABG pH 7.42 pH Units (7.32-7.45) 04/06/16 06:22 ABG pCO2 46 mmHg (35-45) H 04/06/16 06:22 ABG pO2 72 mmHg (85-104) L 04/06/16 06:22 ABG O2 Saturation 95 % (95-98) 04/06/16 06:22 PT/INR, D-dimer PT 13.7 Seconds (9.4-12.1) H 04/05/16 17:09 - VTE Documentation of Mechanical Device: Graduated compression elastic hosiery Consult Discharge Plan - Plan Referrals: Courtney Valenzuela DO [Primary Care Provider] - <Justin Dinh - Last Filed: 04/10/16 07:30> Date of Encounter: 04/10/16 - Assessment and plan (1) HCAP (healthcare-associated pneumonia) Current Visit: Yes Status: Acute (2) DVT prophylaxis Current Visit: Yes Status: Acute (3) Acute exacerbation of chronic obstructive airways disease Current Visit: Yes Status: Acute (4) Lung cancer Current Visit: Yes Status: Acute Qualifiers: Laterality: unspecified laterality Lung location: unspecified part of lung Qualified Code(s): C34.90 - Malignant neoplasm of unspecified part of unspecified bronchus or lung (5) Tobacco abuse Current Visit: No Status: Chronic - Constitutional Vitals: Temp Pulse Resp BP Pulse Ox 98.2 F 99 18 126/83 96 04/10/16 03:38 04/10/16 03:38 04/10/16 05:05 04/10/16 05:05 04/10/16 05:05 Internal Medicine: Result - Labs CBC & Chem 7: 04/10/16 04:32 04/10/16 04:32 Labs: Short CBC 04/10/16 Range/Units 04:32 WBC 9.7 (4.3-11.1) K/mcL Hgb 9.1 L (12.9-16.9) g/dL Hct 29.4 L (37.5-50.1) % Plt Count 806 H (140-400) K/mcL Neutrophils # 7.7 (1.6-8.9) K/mcL BMP 04/10/16 04:32 Sodium 131 L Potassium 3.9 Chloride 95 L Carbon Dioxide 26 BUN 16 Creatinine 0.83 Glucose 103 H Calcium 8.5 L - ABG Interpretation ABG results: ABG ABG pH 7.42 pH Units (7.32-7.45) 04/06/16 06:22 ABG pCO2 46 mmHg (35-45) H 04/06/16 06:22 ABG pO2 72 mmHg (85-104) L 04/06/16 06:22 ABG O2 Saturation 95 % (95-98) 04/06/16 06:22 PT/INR, D-dimer PT 13.7 Seconds (9.4-12.1) H 04/05/16 17:09 - Attending Attestation I examined this patient and my medical decision-making was reviewed with the MANAGER OF SOFTWARE/PA/Advanced Practice Nurse/Resident Physician. I agree with the documented findings, disposition and treatment plan as described except to the extent set forth below. Mr. Sheridan was seen and examined on rounds, he is stable at this point. Continue with IV antibiotics, will de-escalate for now. Possible discharge tomorrow. Continue with pain control medication. Follow with primary care physician upon discharge. Evaluation by oncology upon discharge.
[2016-04-10] MEDS: *HR* OxyCODONE Immed Rel 5 MG TABLET PO PRN ×4 (03:33→20:31)
[2016-04-10 04:54] LABS: Basophils % 0.2 %; Eosinophils % 0.1 %; Hematocrit 29.4 % (37.5-50.1); Hemoglobin 9.1 g/dL (12.9-16.9); Immature Granulocytes % 0.5 % (0-4); Lymphocytes # 0.7 K/mcL (0.6-4.6); Lymphocytes % 7.4 %; Mean Corpuscular Hemoglobin 25.6 pg (28.0-33.3); Mean Corpuscular Volume 82.8 fL (83.0-100.0); Mean Platelet Volume 9.5 fL (9.4-12.4); Monocytes # 1.2 K/mcL (0.0-1.3); Monocytes % 12.6 %; Neutrophils # 7.7 K/mcL (1.6-8.9); Platelet Count 806 K/mcL (140-400); Red Blood Count 3.55 M/mcL (4.19-5.50); Segmented Neutrophils % 79.2 %
[2016-04-10] MEDS: Ipratropium/Albuterol Neb 3 ML IH SCH ×4 (05:04→21:56)
[2016-04-10 05:08] LABS: BUN/Creatinine Ratio 19 (6-26); Blood Urea Nitrogen 16 mg/dL (8-26); Calcium 8.5 mg/dL (8.6-10.8); Carbon Dioxide 26 mEq/L (19-29); Chloride 95 mEq/L (98-109); Glucose 103 mg/dL (70-99); Osmolality,Calculated 273 (280-300); Potassium 3.9 mEq/L (3.5-4.5); Sodium 131 mEq/L (136-145); eGFR For African Americans > 60 (> 60); eGFR For Non-African Americans > 60 (> 60)
--- NOTE | 2016-04-10 06:26 | Internal Med Progress Note ---
<Krzysztof Magallanes - Last Filed: 04/10/16 09:51> Date of Encounter: 04/10/16 Time of Encounter: 06:23 - Assessment and plan (1) Healthcare-associated pneumonia Current Visit: Yes Status: Acute Assessment and plan: Patient with increased cough and dyspnea. Patient receiving chemotherapy. This would qualify him as HCAP. May also have a post obstructive component. Patient is doing well/improving. No growth from blood or sputum cultures to date. Will continue Zosyn Deescalate antibiotics yesterday. However he did receive a dose of levofloxacin before I could place the order. Plan will be to observe him today. If he does well and remains afebrile we will plan to discharge him in the morning. Most likely we will discharge him with Augmentin as there is concern for possible postobstructive pneumonia with his large lung mass. (2) Lung cancer Current Visit: Yes Status: Acute Assessment and plan: Possibly primary. poorly differentiated carcinoma from bone biopsy. Management per oncology appreciate their assistance. Qualifiers: Laterality: unspecified laterality Lung location: unspecified part of lung Qualified Code(s): C34.90 - Malignant neoplasm of unspecified part of unspecified bronchus or lung (3) Underweight Current Visit: Yes Status: Acute Assessment and plan: nutrition consult. Recent states he is eating much better now. (4) Leukocytosis Current Visit: Yes Status: Resolved Assessment and plan: resolved Qualifiers: Qualified Code(s): D72.829 - Elevated white blood cell count, unspecified (5) Anemia Current Visit: Yes Status: Acute Assessment and plan: denies any bleeding Specifically he denies hemoptyisis Hg improving today. chemotherapy was on 03/30/16. Most likley the anemia is secondary to this. appreciate Hematologies recommendations. We will continue daily CBCs to monitor for Neutropenia Qualifiers: Qualified Code(s): D64.9 - Anemia, unspecified (6) Essential thrombocytosis Current Visit: Yes Status: Acute Assessment and plan: management per oncology Holding hydroxyurea at this time per oncology. monitor for rebound thrombocytosis. Will plan to call hematology today for their input as to when to restart his eye Droxia urea as his platelets are trending up and are over 800,000. Concern would be for functional von Willebrand deficiency should they increase over 1 million. (7) Hyponatremia Current Visit: Yes Status: Acute Assessment and plan: mild euvolemic likely nutritional. continue to monitor (8) Smoking Current Visit: Yes Status: Acute Assessment and plan: advise cessation. nicotine patch. (9) DVT prophylaxis Current Visit: Yes Status: Acute Assessment and plan: on Lovenox - Subjective Interval history: No major events overnight. Patient did receive a dose of levofloxacin yesterday. It was introduced prior to my seeing the patient. This morning he states he is feeling much better. He denies any increased dyspnea. He is on his home dose of oxygen at 2 L via nasal cannula. He denies any hemoptysis or productive cough. Denies any malaise. Denies any chest pain abdominal pain or other discomfort. He states he is eating and drinking well. He has no further complaints or concerns at this time. - Constitutional Vitals: Temp Pulse Resp BP Pulse Ox 98.2 F 99 18 126/83 96 04/10/16 03:38 04/10/16 03:38 04/10/16 05:05 04/10/16 05:05 04/10/16 05:05 General appearance: Present: cachectic, cooperative, pleasant, no acute distress , underweight, answers questions appropriately Exam: General: This is a thin and frail appearing 56-year-old male who appears older than his stated age. He is alert and orientated to person place time and situation. HEENT: Head is normal cephalic atraumatic. Pupils equally round reactive to light. Anicteric sclera. Moist mucous membranes. Tongue is midline. Dentition is intact but is poor. There is no cervical or supraclavicular lymphadenopathy palpable on exam. Heart: Regular rate and rhythm without murmurs rubs or gallops. There is a port in place in the right chest wall. It is well dressed. Lungs: Clear to auscultation bilaterally. Normal effort. Abdomen: Abdomen is soft, nondistended, nontender to palpation. No organomegaly or bruits noted on exam. Extremities: There is no clubbing, cyanosis or edema. Integument: No rashes or lesions noted. Internal Medicine: Result - Labs CBC & Chem 7: 04/10/16 04:32 04/10/16 04:32 Labs: Short CBC 04/10/16 Range/Units 04:32 WBC 9.7 (4.3-11.1) K/mcL Hgb 9.1 L (12.9-16.9) g/dL Hct 29.4 L (37.5-50.1) % Plt Count 806 H (140-400) K/mcL Neutrophils # 7.7 (1.6-8.9) K/mcL BMP 04/10/16 04:32 Sodium 131 L Potassium 3.9 Chloride 95 L Carbon Dioxide 26 BUN 16 Creatinine 0.83 Glucose 103 H Calcium 8.5 L - ABG Interpretation ABG results: ABG ABG pH 7.42 pH Units (7.32-7.45) 04/06/16 06:22 ABG pCO2 46 mmHg (35-45) H 04/06/16 06:22 ABG pO2 72 mmHg (85-104) L 04/06/16 06:22 ABG O2 Saturation 95 % (95-98) 04/06/16 06:22 PT/INR, D-dimer PT 13.7 Seconds (9.4-12.1) H 04/05/16 17:09 - VTE Documentation of Mechanical Device: Graduated compression elastic hosiery Consult Discharge Plan - Plan Referrals: Courtney Valenzuela DO [Primary Care Provider] - <Justin Dinh - Last Filed: 04/10/16 18:06> Date of Encounter: 04/10/16 - Assessment and plan (1) HCAP (healthcare-associated pneumonia) Current Visit: Yes Status: Acute (2) DVT prophylaxis Current Visit: Yes Status: Acute (3) Acute exacerbation of chronic obstructive airways disease Current Visit: Yes Status: Acute (4) Lung cancer Current Visit: Yes Status: Acute Qualifiers: Laterality: unspecified laterality Lung location: unspecified part of lung Qualified Code(s): C34.90 - Malignant neoplasm of unspecified part of unspecified bronchus or lung (5) Tobacco abuse Current Visit: No Status: Chronic - Constitutional Vitals: Temp Pulse Resp BP Pulse Ox 99.6 F 100 16 127/83 97 04/10/16 15:16 04/10/16 15:16 04/10/16 15:32 04/10/16 15:16 04/10/16 15:32 Internal Medicine: Result - Labs CBC & Chem 7: 04/10/16 04:32 04/10/16 04:32 Labs: Short CBC 04/10/16 Range/Units 04:32 WBC 9.7 (4.3-11.1) K/mcL Hgb 9.1 L (12.9-16.9) g/dL Hct 29.4 L (37.5-50.1) % Plt Count 806 H (140-400) K/mcL Neutrophils # 7.7 (1.6-8.9) K/mcL BMP 04/10/16 04:32 Sodium 131 L Potassium 3.9 Chloride 95 L Carbon Dioxide 26 BUN 16 Creatinine 0.83 Glucose 103 H Calcium 8.5 L - ABG Interpretation ABG results: ABG ABG pH 7.42 pH Units (7.32-7.45) 04/06/16 06:22 ABG pCO2 46 mmHg (35-45) H 04/06/16 06:22 ABG pO2 72 mmHg (85-104) L 04/06/16 06:22 ABG O2 Saturation 95 % (95-98) 04/06/16 06:22 PT/INR, D-dimer PT 13.7 Seconds (9.4-12.1) H 04/05/16 17:09 - Attending Attestation I examined this patient and my medical decision-making was reviewed with the MANAGER ANALYTICAL/PA/Advanced Practice Nurse/Resident Physician. I agree with the documented findings, disposition and treatment plan as described except to the extent set forth below. Lung cancer, chronic active smoker, LTOT. Admitted due to HCAP, responding well to treatment. Likely d/c tomorrow in am. Most likely discharge with Augmentin as there is concern for possible postobstructive pneumonia with his large lung mass.
[2016-04-10] MEDS: *HR* Enoxaparin 40 MG/0.4 ML SYRINGE SQ SCH (06:42)
--- NOTE | 2016-04-10 07:14 | Electrocardiograph Report ---
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
[2016-04-10] MEDS: Aspirin 81 MG TAB.CHEW PO SCH (07:31)
[2016-04-10] MEDS: hydroCHLOROthiazide 25 MG TABLET PO SCH (07:31)
[2016-04-10] MEDS: Magnesium Oxide 400 MG TABLET PO SCH ×2 (07:31→20:31)
[2016-04-10] MEDS: Sennosides/Docusate Sodium TABLET PO SCH ×2 (07:31→20:31)
[2016-04-10] MEDS: Piperacillin/Tazobactam 3.375 GM in D5% in Water (Mini-Bag+) 100 ML IVPB SCH ×2 (07:31→17:10)
[2016-04-10] MEDS: ENSURE PO SCH ×3 (07:32→20:32)
[2016-04-10] MEDS: Nicotine 21 MG PATCH.TD24 TD SCH (07:32)
[2016-04-10] MEDS: *HR* HYDROmorphone (PF) 1 MG/ML SYRINGE IVP PRN (09:11)
--- NOTE | 2016-04-10 16:02 | Oncology Inp Progress Note ---
<[place] E - Last Filed: 04/10/16 15:59> Date of Encounter: 04/10/16 Time of Encounter: 15:00 (1) Essential thrombocytosis Current Visit: Yes Status: Acute Assessment and plan: Platelets have increased to 806,000. Hydroxyurea 500 mg 1 by mouth twice a day will be restarted. This was explained to the patient. (2) HCAP (healthcare-associated pneumonia) Current Visit: Yes Status: Acute Assessment and plan: He continues to improve. Continue current plan of care. Oncology: Subj Interval history: Patient seen and examined at bedside bedside. He reports he is feeling much better. His breathing has improved. - Constitutional Vitals: Vital Signs Temp Pulse Resp BP Pulse Ox 04/10/16 15:32 16 97 04/10/16 15:16 99.6 F 100 16 127/83 97 04/10/16 10:59 16 95 04/10/16 10:58 98.7 F 98 16 108/69 95 04/10/16 07:32 98.8 F 102 16 121/82 95 04/10/16 05:05 18 126/83 96 04/10/16 03:38 98.2 F 99 18 126/83 96 04/09/16 23:08 96 04/09/16 23:04 98.1 F 110 14 119/71 97 04/09/16 22:30 18 97 04/09/16 20:48 98 F 111 16 133/89 99 Intake and Output 04/09/16 04/10/16 04/10/16 23:59 07:59 15:59 Intake Total 515 / 515 800 / 800 700 / 700 Output Total 900 / 900 775 / 775 200 / 200 Balance -385 / -385 25 / 25 500 / 500 Intake: IV Fluids 100 / 100 100 / 100 100 / 100 Zosyn 3.375 GM In 100 / 100 100 / 100 100 / 100 Dextrose 5% (Minibag+) 100 ML 100 ML @ 25 mls/hr IVPB Q8HR [facility] Rx#: [id number] Oral 415 / 415 200 / 200 600 / 600 Free Water 500 / 500 Output: Urine 900 / 900 775 / 775 200 / 200 Other: Meal Dinner Lunch Percent of Meal Consumed 80% 100% General appearance: cooperative, no acute distress - Head Head exam: Present: normocephalic - ENT ENT exam: Present: mucous membranes moist - Respiratory Respiratory exam: Present: CTAB (-No crackles, rhonchi or wheezes) - Cardiovascular Cardiovascular exam: Present: RRR - GI/Abdominal GI/Abdominal exam: Present: normal bowel sounds, soft (Tender) - Extremities Exam Extremities exam: Present: normal inspection - Neurological Exam Neurological exam: Present: alert, oriented X3 - Psychiatric Psychiatric exam: Present: normal affect Oncology: Obj Data - Labs CBC & Chem 7: 04/10/16 04:32 04/10/16 04:32 Labs: Laboratory Results - last 24 hr 04/10/16 04/10/16 04:32 04:32 WBC 9.7 RBC 3.55 L Hgb 9.1 L Hct 29.4 L MCV 82.8 L MCH 25.6 L MCHC 31.0 L RDW 15.0 H Plt Count 806 H MPV 9.5 Immature Gran % 0.5 Seg Neutrophils % 79.2 Lymphocytes % 7.4 Monocytes % 12.6 Eosinophils % 0.1 Basophils % 0.2 Neutrophils # 7.7 Lymphocytes # 0.7 Monocytes # 1.2 Eosinophils # 0.0 Basophils # 0.0 Sodium 131 L Potassium 3.9 Chloride 95 L Carbon Dioxide 26 BUN 16 Creatinine 0.83 Est GFR ( Amer) > 60 Est GFR (Non-Af Amer) > 60 BUN/Creatinine Ratio 19 Glucose 103 H Calculated Osmolality 273 L Calcium 8.5 L - ABG Interpretation ABG results: ABG ABG pH 7.42 pH Units (7.32-7.45) 04/06/16 06:22 ABG pCO2 46 mmHg (35-45) H 04/06/16 06:22 ABG pO2 72 mmHg (85-104) L 04/06/16 06:22 ABG O2 Saturation 95 % (95-98) 04/06/16 06:22 PT/INR, D-dimer PT 13.7 Seconds (9.4-12.1) H 04/05/16 17:09 Consult Discharge Plan - Plan Referrals: Courtney Valenzuela DO [Primary Care Provider] - <Suzanne Schaeffer - Last Filed: 04/11/16 08:57> Date of Encounter: 04/11/16 (1) HCAP (healthcare-associated pneumonia) Current Visit: Yes Status: Acute Assessment and plan: Patient was seen and examined by me bedside on 04/10/16. Cough improving afebrile. Tachycardia with min exertion. Had BM [id number] restrated. He is JAk2 positive. Continue antibiotics. Pain u nder control. Plan of care discussed with patient in detail and I agree with plan outlined by Heavenly Ware NP - Constitutional Vitals: Vital Signs Temp Pulse Resp BP Pulse Ox 04/11/16 07:33 98.3 F 112 14 131/94 93 L 04/11/16 04:34 20 95 04/11/16 03:58 98.8 F 104 15 120/80 98 04/10/16 23:24 99.2 F 110 15 124/82 93 L 04/10/16 21:56 16 96 04/10/16 19:56 99 F 107 15 123/83 95 04/10/16 19:31 98 F 68 16 138/56 98 04/10/16 15:32 16 97 04/10/16 15:16 99.6 F 100 16 127/83 97 04/10/16 10:59 16 95 04/10/16 10:58 98.7 F 98 16 108/69 95 Intake and Output 04/10/16 04/11/16 04/11/16 23:59 07:59 15:59 Intake Total 340 / 340 100 / 100 Output Total 650 / 650 300 / 300 Balance -310 / -310 -200 / -200 Intake: IV Fluids 100 / 100 100 / 100 Zosyn 3.375 GM In 100 / 100 100 / 100 Dextrose 5% (Minibag+) 100 ML 100 ML @ 25 mls/hr IVPB Q8HR [facility] Rx#: [id number] Oral 240 / 240 Output: Urine 650 / 650 300 / 300 Other: Meal Dinner Percent of Meal Consumed 75% Oncology: Obj Data - Labs CBC & Chem 7: 04/11/16 04:00 04/11/16 04:27 Labs: Laboratory Results - last 24 hr 04/11/16 04/11/16 04:00 04:27 WBC 9.3 RBC 3.39 L Hgb 8.6 L Hct 27.9 L MCV 82.3 L MCH 25.4 L MCHC 30.8 L RDW 15.0 H Plt Count 927 H MPV 9.4 Immature Gran % 0.6 Seg Neutrophils % 76.8 Lymphocytes % 9.8 Monocytes % 12.3 Eosinophils % 0.2 Basophils % 0.3 Neutrophils # 7.1 Lymphocytes # 0.9 Monocytes # 1.1 Eosinophils # 0.0 Basophils # 0.0 Platelet Estimate Marked Increase H Immature Plt Fraction 2.9 Poikilocytosis 1+ A Anisocytosis 1+ A Sodium 131 L Potassium 4.0 Chloride 94 L Carbon Dioxide 27 BUN 15 Creatinine 0.82 Est GFR ( Amer) > 60 Est GFR (Non-Af Amer) > 60 BUN/Creatinine Ratio 18 Glucose 106 H Calculated Osmolality 273 L Calcium 8.8 - ABG Interpretation ABG results: ABG ABG pH 7.42 pH Units (7.32-7.45) 04/06/16 06:22 ABG pCO2 46 mmHg (35-45) H 04/06/16 06:22 ABG pO2 72 mmHg (85-104) L 04/06/16 06:22 ABG O2 Saturation 95 % (95-98) 04/06/16 06:22 PT/INR, D-dimer PT 13.7 Seconds (9.4-12.1) H 04/05/16 17:09
[2016-04-10] MEDS: Lactulose Oral Soln 20 GM/30 ML UDC PO SCH ×2 (17:09→20:32)
[2016-04-10] MEDS: Hydroxyurea 500 MG CAPSULE PO SCH (20:36)
[2016-04-11] MEDS: Piperacillin/Tazobactam 3.375 GM in D5% in Water (Mini-Bag+) 100 ML IVPB SCH ×2 (00:33→07:41)
[2016-04-11] MEDS: *HR* OxyCODONE Immed Rel 5 MG TABLET PO PRN ×3 (00:33→11:59)
[2016-04-11] MEDS: Ipratropium/Albuterol Neb 3 ML IH SCH ×2 (04:34→09:52)
[2016-04-11 04:51] LABS: Basophils % 0.3 %; Eosinophils % 0.2 %; Hematocrit 27.9 % (37.5-50.1); Hemoglobin 8.6 g/dL (12.9-16.9); Immature Granulocytes % 0.6 % (0-4); Immature Platelets 2.9 % (1.1-6.1); Lymphocytes # 0.9 K/mcL (0.6-4.6); Lymphocytes % 9.8 %; Mean Corpuscular HGB Conc 30.8 g/dL (31.6-35.5); Mean Corpuscular Hemoglobin 25.4 pg (28.0-33.3); Mean Corpuscular Volume 82.3 fL (83.0-100.0); Mean Platelet Volume 9.4 fL (9.4-12.4); Monocytes # 1.1 K/mcL (0.0-1.3); Monocytes % 12.3 %; Neutrophils # 7.1 K/mcL (1.6-8.9); Platelet Count 927 K/mcL (140-400); Red Blood Count 3.39 M/mcL (4.19-5.50); Segmented Neutrophils % 76.8 %
[2016-04-11 05:27] LABS: Anisocytosis 1+ (Not Present); Platelet Estimate Marked Increase (Normal); Poikilocytosis 1+ (Not Present)
[2016-04-11 05:50] LABS: BUN/Creatinine Ratio 18 (6-26); Blood Urea Nitrogen 15 mg/dL (8-26); Calcium 8.8 mg/dL (8.6-10.8); Carbon Dioxide 27 mEq/L (19-29); Chloride 94 mEq/L (98-109); Glucose 106 mg/dL (70-99); Osmolality,Calculated 273 (280-300); Sodium 131 mEq/L (136-145); eGFR For African Americans > 60 (> 60); eGFR For Non-African Americans > 60 (> 60)
[2016-04-11] MEDS: Sennosides/Docusate Sodium TABLET PO SCH (07:40)
[2016-04-11] MEDS: Nicotine 21 MG PATCH.TD24 TD SCH (07:40)
[2016-04-11] MEDS: *HR* Enoxaparin 40 MG/0.4 ML SYRINGE SQ SCH (07:40)
[2016-04-11] MEDS: Hydroxyurea 500 MG CAPSULE PO SCH (07:40)
[2016-04-11] MEDS: hydroCHLOROthiazide 25 MG TABLET PO SCH (07:40)
[2016-04-11] MEDS: Aspirin 81 MG TAB.CHEW PO SCH (07:40)
[2016-04-11] MEDS: Magnesium Oxide 400 MG TABLET PO SCH (07:40)
[2016-04-11] MEDS: ENSURE PO SCH (07:42)
[2016-04-11] MEDS: Lactulose Oral Soln 20 GM/30 ML UDC PO SCH (07:42)
--- NOTE | 2016-04-11 10:16 | Discharge Summary ---
Date of Encounter: 04/11/16 Time of Encounter: 10:15 - Discharge Diagnosis (1) HCAP (healthcare-associated pneumonia) Priority: Primary Status: Acute (2) Lung cancer Priority: Secondary Status: Chronic Qualifiers: Laterality: unspecified laterality Lung location: unspecified part of lung Qualified Code(s): C34.90 - Malignant neoplasm of unspecified part of unspecified bronchus or lung (3) Underweight Priority: Secondary Status: Chronic (4) COPD (chronic obstructive pulmonary disease) Priority: Secondary Status: Chronic Qualifiers: COPD type: unspecified COPD Qualified Code(s): J44.9 - Chronic obstructive pulmonary disease, unspecified (5) Essential thrombocytosis Priority: Secondary Status: Chronic (6) Hypertension Priority: Secondary Status: Chronic Qualifiers: Qualified Code(s): I10 - Essential (primary) hypertension (7) Metastatic lung carcinoma Priority: Secondary Status: Chronic Qualifiers: Laterality: right Qualified Code(s): C78.01 - Secondary malignant neoplasm of right lung (8) Tobacco abuse Priority: Secondary Status: Chronic (9) Anemia Priority: Secondary Status: Acute Qualifiers: Anemia type: unspecified type Qualified Code(s): D64.9 - Anemia, unspecified - Discharge Medications Prescriptions: Amoxicillin/Clavulanate [Augmentin] 875 mg PO BIDWM #10 tablet Hydroxyurea [Hydrea] 500 mg PO BID #60 capsule Lactulose 20 gm PO BID #20 udc Sennosides/Docusate Sodium [Senna Plus] 1 each PO BID #60 tablet Home Medications: Hydrochlorothiazide [Microzide] 25 mg PO DAILY 09/18/14 [History] Aspirin 81 mg PO DAILY #90 tab.chew 12/09/14 [Rx] Omeprazole [PriLOSEC] 40 mg PO DAILY #30 capsule 04/07/15 [Rx] Tiotropium [Spiriva] 18 mcg IH DAILY 04/07/15 [History] Albuterol Sulfate [Ventolin Hfa] 2 puff IH Q4H PRN 10/07/15 [History] Budesonide/Formoterol 160/4.5 [Symbicort 160/4.5] 2 puff IH BIDR 10/07/15 [ History] Montelukast [Singulair] 10 mg PO DAILY 11/15/15 [History] Calcium Carb, Citrate/Vit D3 [Calcium + D3 ER Tablet] 1 each PO DAILY #30 tablet.er 11/19/15 [Rx] Docusate Sodium [Colace] 100 mg PO BID PRN #60 02/10/16 [Rx] Dexamethasone [Decadron] 4 mg PO BID #40 tab 03/16/16 [Rx] Ondansetron [Zofran] 4 mg PO Q8HR PRN #90 tablet 03/16/16 [Rx] Prochlorperazine Maleate [Compazine] 10 mg PO Q8HR PRN #90 tablet 03/16/16 [Rx] Lidocaine/Prilocaine CREAM [Emla] 1 gm TP AD #1 tube 03/20/16 [Rx] Magic Mouthwash 5 ml PO Q4H PRN #240 ml 03/20/16 [Rx] OxyCODONE Immed Rel [Roxicodone 5 MG] 5 mg PO Q6HR PRN #90 tablet 03/30/16 [Rx] Ipratropium/Albuterol Neb [Duoneb] 3 ml IH QID PRN 04/05/16 [History] Lactose-Reduced Food [Ensure Liquid] 1 bottle PO TID 04/05/16 [History] Amoxicillin/Clavulanate [Augmentin] 875 mg PO BIDWM #10 tablet 04/11/16 [Rx] Hydroxyurea [Hydrea] 500 mg PO BID #60 capsule 04/11/16 [Rx] Lactulose 20 gm PO BID #20 udc 04/11/16 [Rx] Sennosides/Docusate Sodium [Senna Plus] 1 each PO BID #60 tablet 04/11/16 [Rx] Allergies/Adverse Reactions: Allergies No Known Allergies Allergy (Verified 04/05/16 15:28) Procedures/tests Complete & Pending: Procedures Performed prior 72 hours Category Date Time Status ECG 12 lead ECG [ECG] Routine Y 04/08/16 12:55 Completed Date of admission: 04/07/16 08:15 Primary care physician: Courtney Valenzuela DO Discharging clinician: Wolf Dobbins Anticipated date of discharge: 04/11/16 - Patient Status Disposition: Home, Self-Care Condition: Fair Functional capacity at discharge: independent ambulation Overall status at discharge: patient is progressing back to baseline - Discharge Instructions Instructions: Pneumonia (DC) Follow Up With: Courtney Valenzuela DO [Primary Care Provider] - - Diet and Activity Activity: resume usual activities as tolerated, wear oxygen at all times Diet: advance to your usual diet Interval History: See below documentation Hospital course: Mr. Sheridan is a 56 year old male with past medical history myeloproliferative neoplasm, lung cancer metastatic to the bones, history of GI bleed, pancreatic cyst, known to oncology team. Past medical history includes essential hypertension, COPD, peripheral vascular disease, tobacco abuse. Patient was admitted for management of pneumonia, healthcare associated with possible post-obstructive component from lung mass. He was also evaluated for worsening anemia possibly secondary to chemotherapy. He was started on empiric antibiotics, including Zosyn. Blood and sputum cultures have been negative. Patient has received 5 days of intravenous antibiotics Zosyn. He will be discharged on Augmentin by mouth to complete 5 more days. Smoking cessation counseling is done for 3 minutes. Patient's chronic conditions including lung cancer, thrombocytosis, and anemia admitted by oncology, recommend outpatient follow-up. Plan of care discussed with patient verbalizes understanding. Time spent discussing smoking cessation with patient: 3 to 10 minutes (3 minutes spent discussing smoking cessation) - Time Spent with Patient Total time spent providing and/or coordinating discharge services: Less than 30 minutes - Constitutional Vitals: Temp Pulse Resp BP Pulse Ox 98.3 F 112 14 131/94 93 L 04/11/16 07:33 04/11/16 07:33 04/11/16 07:33 04/11/16 07:33 04/11/16 07:33 General appearance: Present: cachectic, cooperative, pleasant, no acute distress , underweight, answers questions appropriately - Head Head exam: Present: atraumatic, normocephalic - Eye Eye exam: Present: PERRL, conjuntiva pink, sclera anicteric Pupils: Present: PERRL - Neck Neck exam general surgery: Present: supple, trachea midline. Absent: lymphadenopathy - Respiratory Additional comments: R chest wall port-a-cath Lungs are clear to auscultation bilaterally - Cardiovascular Cardiovascular exam: Present: RRR, +S1, +S2. Absent: diastolic murmur, gallop, rubs, systolic murmur - GI/Abdominal GI/Abdominal exam: Present: normal bowel sounds, soft, no peritoneal signs. Absent: distended, tenderness - Extremities Exam Extremities exam: Present: warm, radial pulses palpable and symetrical. Absent : calf tenderness, cyanotic, pedal edema - Neurological Exam Neurological exam: Present: CN II-XII intact, oriented X3, no focal deficits. Absent: pronater drift, facial droop, speech deficit - Skin Skin exam: Present: dry, intact - VTE Documentation of Mechanical Device: Graduated compression elastic hosiery
[2016-04-11 11:24] VITALS: BP 115/80
== END 2016-04-11 13:20 | disposition home or self-care (01) | DRG 190 ==
LOC: EMEROO 15:23 → 3NENU 15:23 → SUATTDRO 04-07 08:15
PROVIDERS: ADMIT Internal Medicine; ATTEND Internal Medicine